=== PATIENT | male | born 1970 | race Caucasian/White ===

== ENCOUNTER → 2018-03-30 15:08 | Outpatient (CLI) | payer BC, SELFPAY ==
--- NOTE | 2018-03-30 15:13 | CT_ITS ---
CT head/brain wo/w con HISTORY: Dizziness, headache following injury ITS.REASON: RIGHT ACUTE SEROUS OTILIS MEDIA, DIZZINESS ORDERING PHYSICIAN: Lola Sweeney PATIENT AGE: 47 years COMPARISON: None TECHNIQUE: Axial images obtained without and with 100 mL's of 300 contrast. Brain and bone windows reviewed. All CT scans at the facility use one or more dose reduction, viz: automated exposure control; ma/kV adjustment per patient size (including targeted exams where dose is matched to indication; i.e. head); or iterative reconstruction technique. FINDINGS: No midline shift, mass effect, intracranial hemorrhage, hydrocephalus, or extra-axial fluid collection is evident. No enhancing lesions are evident. No sinus air-fluid level or mastoid effusion. No obvious calvarial fracture. There is mild mucosal thickening of the ethmoid and left maxillary sinus. The calvarium has an unremarkable appearance. No mastoid effusion. No sinus air-fluid levels.. IMPRESSION: 1. No acute intracranial findings. 2. Minimal sinus disease
== END ==
PROVIDERS: Family Provider Emergency Medicine; PCP Family Medicine; Visit Provider Nurse Practitioner Family
DX: H65.01 Acute serous otitis media, right ear (principal); R42 Dizziness and giddiness
CPT/HCPCS: 70470; Q9967

== ENCOUNTER → 2019-04-29 12:07 | Outpatient (CLI) | payer BC, SELFPAY ==
--- NOTE | 2019-04-29 12:12 | XR_ITS ---
XR wrist LT min 3V CLINICAL INDICATION: ITS.REASON: LT WRIST INJURY ORDERING PHYSICIAN: Lola Sweeney APRN PATIENT AGE: 48 years Comparison: None FINDINGS: There is a subtle sclerotic area in the proximal scaphoid bone. The remainder of the bone density, joint space and alignment are normal. There is no acute fracture. Soft tissues are unremarkable. Impression: No acute process. Scaphoid sclerotic area could be a benign bone island or chronic stress reaction.
== END ==
PROVIDERS: PCP Nurse Practitioner Family; Visit Provider Nurse Practitioner Family
DX: S69.92XA Unspecified injury of left wrist, hand and finger(s), initial encounter (principal)
CPT/HCPCS: 73110

== ENCOUNTER → 2019-05-20 10:40 | Outpatient (CLI) | payer BC, SELFPAY ==
--- NOTE | 2019-05-20 10:46 | MR_ITS ---
PROCEDURE: MR WRIST LT WO CON CLINICAL INDICATION: LEFT WRIST PAIN, INJURY OF LEFT WRIST Left wrist pain, COMPARISON: No exams were available for comparison TECHNIQUE: Routine multiplanar multi echo sequences are performed without contrast FINDINGS: Amorphous signal intensity is noted within the capitate having a the appearance of a fracture on the axial images but not as convincing on the sagittal or coronal images with decreased T1 and some increased T2 signal. An old fracture is a possibility. Recommend CT of the wrist for better bony detail. There is also some soft transverse decreased T1 signal in the lunate showing slight increased T2 signal. There are 2 foci of decreased T1 and decreased T2 signal within the scaphoid which could be due to bone islands. The triangular fibrocartilage appears intact. No soft tissue mass or abnormal fluid collection. IMPRESSION: Signal alteration within the lunate and capitate of questionable etiology. Healing fractures are consideration. Subarticular cystic change of the capitate is also considered. Other more aggressive etiology is not completely excluded. Suggest CT scan of the for better bony detail. Suspect bone islands of the scaphoid Dictated by: Jerald Olivares MD 05/23/2019 12:10 Signed by: <Electronically signed by Jerald Olivares MD in [place]> 05/23/2019 12:10
== END ==
PROVIDERS: PCP Nurse Practitioner Family; Visit Provider Nurse Practitioner Family
DX: M25.532 Pain in left wrist (principal); S69.92XD Unspecified injury of left wrist, hand and finger(s), subsequent encounter
CPT/HCPCS: 73221

== ENCOUNTER → 2019-09-08 16:28 | Outpatient (CLI) | payer BC, SELFPAY ==
--- NOTE | 2019-09-08 | XR_ITS ---
PROCEDURE: XR CHEST 2V CLINICAL HISTORY: Chest pain and cough COMPARISON: CXR1 CHEST-PORTABLE from 05/23/2013 CXR CHEST(2 VIEWS-NOT PORTABLE) from 12/13/2014 FINDINGS: The cardiomediastinal silhouette and pulmonary vascularity are within normal limits. The lungs are clear without infiltrates, suspicious nodules, or pleural effusions. No acute bony abnormalities. IMPRESSION: No acute findings. Dictated by: Jerald Olivares MD 09/08/2019 17:13 Electronically signed by Jerald Olivares MD in [place] 09/08/2019 17:13
[2019-09-08 16:39] LABS: Basophils # 0.1 K/mm3 (0-0.2); Basophils % 0.8 % (0.1-2.0); Eosinophils # 0.2 K/mm3 (0.0-0.4); Eosinophils % 2.6 % (0.1-12.0); Hematocrit 43.1 % (42.0-52.0); Lymphocytes # 2.4 K/mm3 (0.7-4.5); Lymphocytes % 30.6 % (10-50); Mean Corpuscular HGB Conc 32.6 g/dL (31.8-35.4); Mean Corpuscular Hemoglobin 30.4 pg (27.0-31.2); Mean Corpuscular Volume 93.3 fl (80-94); Mean Platelet Volume 7.8 fl (7.4-10.4); Monocytes # 0.5 K/mm3 (0.1-1.0); Monocytes % 5.7 % (1.7-9.3); Neutrophils # 4.7 K/mm3 (1.8-7.8); Neutrophils % 60.2 % (37.0-80.0); Platelet Count 358 K/mm3 (142-424); Red Blood Count 4.62 M/mm3 (4.60-6.20); Red Cell Distribution Width 12.6 % (11.5-17.5); White Blood Count 7.8 K/mm3 (4.8-10.8)
[2019-09-08 16:55] LABS: Alanine Aminotransferase 20 U/L (12-78); Albumin Level 3.8 gm/dL (3.4-5.0); Albumin/Globulin Ratio 1.3 (1.1-1.8); Alkaline Phosphatase 66 U/L (46-116); Anion Gap 13.2 mEq/L (5-15); Aspartate Amino Transferase 14 U/L (15-37); Bilirubin,Total 0.2 mg/dL (0.2-1.0); Blood Urea Nitrogen 14 mg/dL (7-18); Calcium 8.7 mg/dL (8.5-10.1); Carbon Dioxide 29 mmol/L (21.0-32.0); Chloride 101 mmol/L (98-107); Creatinine,Serum 0.95 mg/dL (0.70-1.30); Estimated Glomerular Filt Rate 85 ml/min (>60); GFR (African American) 103 ML/MIN (>60); Glucose 89 mg/dL (74-106); Potassium 4.2 mmoL/L (3.5-5.1); Sodium 139 mmol/L (136-145); Total Protein,Serum 6.8 gm/dL (6.4-8.2); Troponin I < 0.02 ng/ml (0.00-0.06)
[2019-09-10 17:52] LABS: Myoglobin <21 ng/mL (28-72)
== END ==
PROVIDERS: Visit Provider Nurse Practitioner Family
DX: R07.9 Chest pain, unspecified (principal)
CPT/HCPCS: 36415; 71046; 80053; 83874; 84484; 85025

== ENCOUNTER → 2019-12-12 14:27 | Outpatient (CLI) | payer BC, SELFPAY ==
--- NOTE | 2019-12-12 14:32 | XR_ITS ---
PROCEDURE: XR CHEST 2V CLINICAL HISTORY: BRONCHITIS COMPARISON: CXR1 CHEST-PORTABLE from 05/23/2013 CXR CHEST(2 VIEWS-NOT PORTABLE) from 12/13/2014 XR CHEST 2V from 09/08/2019 FINDINGS: The cardiomediastinal silhouette and pulmonary vascularity are within normal limits. The lungs are clear without infiltrates, suspicious nodules, or pleural effusions. No acute bony abnormalities. IMPRESSION: No acute findings. Dictated by: Jerald Olivares MD 12/12/2019 15:51 Electronically signed by Jerald Olivares MD in [place] 12/12/2019 15:51
== END ==
PROVIDERS: PCP Nurse Practitioner; Visit Provider Nurse Practitioner
DX: J20.9 Acute bronchitis, unspecified (principal)
CPT/HCPCS: 71046

== ENCOUNTER → 2021-06-17 15:12 | Outpatient (CLI) | payer BC, SELFPAY ==
--- NOTE | 2021-06-17 15:20 | XR_ITS ---
PROCEDURE: XR CHEST PORTABLE CLINICAL HISTORY: COVID COMPARISON: CR CXR CHEST(2 VIEWS-NOT PORTABLE) from 12/13/2014 CR XR CHEST 2V from 09/08/2019 CR XR CHEST 2V from 12/12/2019 FINDINGS: The cardiomediastinal silhouette and pulmonary vascularity are within normal limits. The lungs are clear without infiltrates, suspicious nodules, or pleural effusions. No acute bony abnormalities. IMPRESSION: No acute findings. Dictated by: Jerald Olivares MD 06/17/2021 16:08 Jerald Olivares MD in [place] 06/17/2021 16:08
== END ==
LOC: RAD 15:16 → COVID.OUT 15:23
PROVIDERS: PCP Nurse Practitioner Family; Visit Provider Nurse Practitioner Family
DX: R06.02 Shortness of breath (principal); U07.1 COVID-19
CPT/HCPCS: 71045

== ENCOUNTER 2021-09-23 11:32 | Emergency (ER) | payer BC, SELFPAY ==
[2021-09-23 13:00] VITALS: BP 133/76; PULSE 85; RESP 18; TEMP 36.6; O2SAT 97; BMI 29.8
--- NOTE | 2021-09-23 13:23 | HMH.EDUTC ---
[facility] [place] Clinical Impression: Bronchitis Sinusitis Qualifiers: Sinusitis location: unspecified location Chronicity: unspecified Qualified Code(s): J32.9 - Chronic sinusitis, unspecified Disposition: Home, Self-Care Condition on Discharge: Good Instructions: Sinusitis, DI for Sinusitis Additional Instructions: ? Start antibiotic today. Be sure to complete entire prescription even if feeling better ? Monitor temp. Tylenol every 4 hours as needed and / or ibuprofen every 6 hours as needed ( As long as your primary care physician has told you that it ok to take both. For fever/aches/pains ER if no less than 101 despite Tylenol or Motrin ? Humidifier/vaporizer or hot steamy shower ? Inhaler every 4-6 hours as needed like we discussed. If unsure how to use it, ask pharmacist to demonstrate how. Should help open airways and improve cough, wheezing, and shortness of breath *Tessalon Perles will not cause drowsiness but use at bedtime to help stop cough so that you may get some rest. *Start steroid today. Helps with inflammation therefore, cough and wheezing. Follow directions on the package. Reviewed side effects. Patient reports taking them before. Follow up IMMEDIATELY for new or worsening of symptoms OR no noticeable improvement over the next 48-72 hours. 911 immediately for any life threatening symptoms such as chest pain or difficulty breathing Prescriptions: Benzonatate [Benzonatate 100mg cap] 100 mg PO Q8HP PRN #15 cap PRN Reason: Cough Transmission Status: Received by [facility] Cefdinir [Omnicef 300mg Capsule] 300 mg PO BID #20 cap Transmission Status: Received by [facility] predniSONE [Prednisone 20mg Tab] 20 mg PO BID 5 Days #10 tab Transmission Status: Received by [facility] Referrals: Lola Sweeney APRN [Primary Care Provider] - As needed Time of Disposition: 14:00 Medical Decision Making - Darian Inquiry Pt receiving controlled substance: No Darian was queried for this patient: No Vital Signs: 09/23/21 13:00 09/23/21 13:45 Temperature 97.9 F 97.9 F Temperature Source Oral Pulse Rate 85 Pulse Rate [Right Brachial] 85 Respiratory Rate 18 18 Blood Pressure 133/76 Blood Pressure [Right Arm] 133/76 Blood Pressure Mean [Right Arm] 95 Blood Pressure Source [Right Arm] Automatic Cuff Blood Pressure Position [Right Arm] Sitting 02 Sat by Pulse Oximetry 97 Oxygen Delivery Method Room Air Orders (Tests/Meds): ED MEDICATIONS Discontinued Medications Generic Name Dose Route Start Last Admin Trade Name Mago PRN Reason Stop Dose Admin Albuterol/Ipratropium 3 ml 09/23/21 13:58 09/23/21 14:00 Ipratropium/Albuterol 3 Ml Neb IH 09/23/21 13:59 3 ml ONCE ONE Administration Methylprednisolone Sodium Succinate 125 mg 09/23/21 13:34 09/23/21 13:36 Methylprednisolone Sod Succ 125mg Vial IM 09/23/21 13:35 125 mg ONCE ONE Administration Medical Decision Narrative: Patient states that he has taken Cefdinir in the past without complications or reactions [facility] [place]PI - General Stated complaint: cough, diarrhea, h/a, congestion Time Seen by Provider: 09/23/21 13:23 Mode of Arrival: Ambulatory Source of Information: Patient Limitations: No Limitations Description of Symptoms (Recalled from Triage Doc. by RN): PATIENT C/O COUGH AND HEADACHE SINCE THURSDAY HEENT Symptoms (Recalled from RN notes): Yes Resp Symptoms (Recalled from RN notes): Yes Skin Symptoms (Recalled from RN notes): No MS Symptoms (Recalled from RN notes): No Functional Status (Recalled from RN notes): WNL - History of Present Illness Provider Complaint: Patient states that he gets bronchitis around this time each year State that he has been having cough, sinus congestion and drainage State that he feels like it is trying to move into his lungs so he came in to get checked and see if he could get a shot - Related Data Home Medications Medication Instructions Re
[2021-09-23 13:45] VITALS: BP 133/76; PULSE 85; RESP 18; TEMP 36.6; O2SAT 97
== END 2021-09-23 14:15 | disposition home or self-care (01) ==
PROVIDERS: Emergency Provider Nurse Practitioner; PCP Nurse Practitioner Family
DX: J20.9 Acute bronchitis, unspecified (principal); J32.9 Chronic sinusitis, unspecified; F17.210 Nicotine dependence, cigarettes, uncomplicated; Z20.822 Contact with and (suspected) exposure to COVID-19
CPT/HCPCS: 96372; 99202; C9803; G0463; U0003; U0005

== ENCOUNTER 2021-09-25 14:41 | Emergency (ER) | payer BC, SELFPAY ==
--- NOTE | 2021-09-25 15:08 | XR_ITS ---
PROCEDURE INFORMATION: Exam: XR Chest Exam date and time: 09/25/2021 3:08 PM Age: 51 years old Clinical indication: Cough and shortness of breath; Smoker's cough; Patient HX: Cough, SOA, smoker, HX of covid; Additional info: SOB TECHNIQUE: Imaging protocol: XR of the chest. Views: 2 views. COMPARISON: CR XR CHEST PORTABLE 06/17/2021 3:47 PM FINDINGS: Lungs: Bilateral hyperinflation is present. No focal pneumonia or pneumothorax. Pleural spaces: There are no pleural effusions present. Heart/Mediastinum: Unremarkable. No cardiomegaly. Bones/joints: The thoracic spine demonstrates mild degenerative changes at multiple levels. IMPRESSION: 1. Bilateral hyperinflation is present. 2. No focal pneumonia or pneumothorax.
[2021-09-25 15:45] VITALS: BP 141/97; PULSE 75; RESP 24; TEMP 36.9; O2SAT 96; BMI 29.4
[2021-09-25 16:25] LABS: Adenovirus,PCR Not Detected (NotDetected); Bordetella Pertussis Not Detected (NotDetected); Chlamydophila Pneumoniae, PCR Not Detected (NotDetected); Coronavirus 19, PCR Not Detected (NotDetected); Coronavirus 229E Not Detected (NotDetected); Coronavirus NL63 Not Detected (NotDetected); Coronavirus OC43 Not Detected (NotDetected); Coronovirus HKU1,PCR Not Detected (NotDetected); Human Metapneumovirus Not Detected (NotDetected); Influenza A, PCR Not Detected (NotDetected); Influenza AH1, 2009 Not Detected (NotDetected); Influenza AH1, PCR Not Detected (NotDetected); Influenza AH3,PCR Not Detected (NotDetected); Influenza B, PCR Not Detected (NotDetected); Mycoplasma Pneumoniae, PCR Not Detected (NotDetected); Parainfluenza 1, PCR Not Detected (NotDetected); Parainfluenza 2, PCR Not Detected (NotDetected); Parainfluenza 3, PCR Not Detected (NotDetected); Respiratory Syncytial Virus Not Detected (NotDetected); Rhinovirus/Enterovirus Not Detected (NotDetected)
--- NOTE | 2021-09-25 16:29 | HMH.EDUTC ---
[facility] [place] Disposition Clinical Impression: Bronchitis, COPD exacerbation Disposition: Home, Self-Care Condition on Discharge: Good Instructions: DI for Chronic Obstructive Pulmonary Disease, Albuterol Oral Inhalation Additional Instructions: ? Continue antibiotic . Be sure to complete entire prescription even if feeling better ? Monitor temp. Tylenol every 4 hours as needed and / or ibuprofen every 6 hours as needed ( As long as your primary care physician has told you that it ok to take both. For fever/aches/pains ER if no less than 101 despite Tylenol or Motrin ? Humidifier/vaporizer or hot steamy shower ? Inhaler every 4-6 hours as needed like we discussed. If unsure how to use it, ask pharmacist to demonstrate how. Should help open airways and improve cough, wheezing, and shortness of breath *Promethazine DM cough syrup will cause drowsiness. Use only at night. No driving, operating machinery or caring for small children after taking it Continue taking steroid Helps with inflammation therefore, cough and wheezing. Follow directions on the package. Reviewed side effects. Patient reports taking them before. Call your Family Doctor and make appointment for follow up Follow up IMMEDIATELY for new or worsening of symptoms OR no noticeable improvement over the next 48-72 hours. 911 immediately for any life threatening symptoms such as chest pain or difficulty breathing Prescriptions: Albuterol Sulfate [Proventil-HFA 90mcg/puff Inh] 1 - 2 puffs IH Q4HP PRN #1 each PRN Reason: Shortness Of Breath Transmission Status: Received by [facility] Promethazine/Dextromethorphan [Promethazine-Dm Syrup] 5 ml PO Q6HP PRN #120 ml PRN Reason: Cough Transmission Status: Received by [facility] Fluticasone Propionate [Flonase 50mcg nasal spray 16gm] 1 spr NS DAILY #1 each Transmission Status: Pending to [facility] Azithromycin [Z-Que 250mg Tab] 250 mg PO DIRECTED #6 tab Transmission Status: Pending to [facility] Referrals: Lola Seweney APRN [Primary Care Provider] - As needed Time of Disposition: 17:50 Medical Decision Making - Darian Inquiry Pt receiving controlled substance: No Darian was queried for this patient: No Vital Signs: 09/25/21 15:45 09/25/21 17:38 Temperature 98.4 F 98.4 F Temperature Source Oral Pulse Rate 75 Pulse Rate [Right Brachial] 75 Respiratory Rate 24 24 Blood Pressure 141/97 H Blood Pressure [Right Arm] 141/97 H Blood Pressure Mean [Right Arm] 111 Blood Pressure Source [Right Arm] Automatic Cuff Blood Pressure Position [Right Arm] Sitting 02 Sat by Pulse Oximetry 96 Oxygen Delivery Method Room Air Orders (Tests/Meds): ED MEDICATIONS Discontinued Medications Generic Name Dose Route Start Last Admin Trade Name Mago PRN Reason Stop Dose Admin Albuterol Sulfate 2.5 mg 09/25/21 17:34 09/25/21 17:36 Albuterol 0.083% 2.5 Mg/3 Ml Neb IH 09/25/21 17:35 2.5 mg ONCE ONE Administration Albuterol/Ipratropium 3 ml 09/25/21 16:13 09/25/21 16:19 Ipratropium/Albuterol 3 Ml Neb IH 09/25/21 16:14 3 ml ONCE ONE Administration ORDERS Category Date Time Status Full Resp Panel w/COVID ([facility]) Routine Lab 09/25/21 15:56 Received - Radiology Data #1 Image(s): Chest Image Reviewed: Yes I reviewed the patient's radiology image w/the ED provider No acute Medical Decision Narrative: Patient states that he is feeling better since starting medication but cough has continued and seems not to be improving States that he has a coughing fit and wheezing is worse at night and his albuteral inhaler was outdated Patient states that breathing feels improved after neb Awaiting CXR reading Patient states that he is feeling better and wants to go home Discussed transfer to the ED for further testing and treatment and patient declined State that he will try new medications and follow up if no improvement SPO2 still 97%on room air Patient edu
[2021-09-25 17:38] VITALS: BP 141/97; PULSE 75; RESP 24; TEMP 36.9; O2SAT 96
[2021-09-25 19:22] LABS: Parainfluenza 4, PCR Detected (NotDetected)
== END 2021-09-25 17:58 | disposition home or self-care (01) ==
PROVIDERS: Emergency Provider Nurse Practitioner; PCP Nurse Practitioner Family
DX: J44.1 Chronic obstructive pulmonary disease with (acute) exacerbation (principal); J20.9 Acute bronchitis, unspecified; F17.210 Nicotine dependence, cigarettes, uncomplicated; Z88.0 Allergy status to penicillin
CPT/HCPCS: 71046; 87581; 87632; 87798; 99202; C9803; G0463; U0003; U0005

== ENCOUNTER 2022-03-22 13:22 | Emergency (ER) | payer BC, OTHER, SELFPAY ==
--- NOTE | 2022-03-22 13:49 | HMH.EDUTC ---
[facility] [place] Disposition Clinical Impression: Vertigo Otitis media Qualifiers: Otitis media type: suppurative Chronicity: acute Laterality: bilateral Recurrence: non-recurrent Spontaneous tympanic membrane rupture: without spontaneous rupture Qualified Code(s): H66.003 - Acute suppurative otitis media without spontaneous rupture of ear drum, bilateral Disposition: Home, Self-Care Condition on Discharge: Good Instructions: Middle Ear Infection, Benign Paroxysmal Positional Vertigo Additional Instructions: Take tylenol or ibuprofen for pain or fever. Take the medications as directed. Follow up with your regular doctor. GO TO THE ER FOR ANY WORSENING SYMPTOMS Prescriptions: methylPREDNISolone [Medrol] 4 mg PO DIRECTED 6 Days #21 packet Transmission Status: Received by [facility] Azithromycin [Z-Que 250mg Tab*] 250 mg PO UD DOSE PK #6 tab Transmission Status: Received by [facility] Referrals: Lloa Sweeney APRN [Primary Care Provider] - Time of Disposition: 14:19 Medical Decision Making - Medical Records Medical records reviewed: No: I reviewed the patient's medical records. - Darian Inquiry Pt receiving controlled substance: No Vital Signs: 03/22/22 13:51 03/22/22 14:22 Temperature 97.9 F 97.9 F Temperature Source Oral Pulse Rate 77 Pulse Rate [Left Radial] 77 Respiratory Rate 17 17 Blood Pressure 129/84 Blood Pressure [Right Arm] 129/84 Blood Pressure Mean [Right Arm] 99 02 Sat by Pulse Oximetry 96 Orders (Tests/Meds): ED MEDICATIONS Discontinued Medications Generic Name Dose Route Start Last Admin Trade Name Freq PRN Reason Stop Dose Admin Methylprednisolone Sodium Succinate 125 mg 03/22/22 14:23 03/22/22 14:25 Methylprednisolone Sod Succ 125mg Vial IM 03/22/22 14:24 125 mg ONCE ONE Administration [facility] [place] HPI - General Stated complaint: dizzy Time Seen by Provider: 03/22/22 13:49 - History of Present Illness Provider Complaint: He states that he has had intermittent dizziness and left ear pain for the past 2 days. - Related Data Home Medications Medication Instructions Recorded Confirmed Amlodipine Besylate/Benazepril 1 tab PO DAILY 09/23/21 09/23/21 [Amlodipine-Benazepril 5-10 mg] Aspirin [Aspirin 81mg chewable 81 mg PO DAILY 09/23/21 09/23/21 tab] Omeprazole [Omeprazole 40mg 40 mg PO DAILY 09/23/21 09/23/21 Capsule] Previous Rx's Medication Instructions Recorded Benzonatate [Benzonatate 100mg 100 mg PO Q8HP PRN #15 cap 09/23/21 cap] Cefdinir [Omnicef 300mg Capsule] 300 mg PO BID #20 cap 09/23/21 predniSONE [Prednisone 20mg 20 mg PO BID 5 Days #10 tab 09/23/21 Tab] Albuterol Sulfate [Proventil-HFA 1 - 2 puffs IH Q4HP PRN #1 each 09/25/21 90mcg/puff Inh] Azithromycin [Z-Que 250mg Tab] 250 mg PO DIRECTED #6 tab 09/25/21 Fluticasone Propionate [Flonase 1 spr NS DAILY #1 each 09/25/21 50mcg nasal spray 16gm] Promethazine/Dextromethorphan 5 ml PO Q6HP PRN #120 ml 09/25/21 [Promethazine-Dm Syrup] Azithromycin [Z-Que 250mg Tab*] 250 mg PO UD DOSE PK #6 tab 03/22/22 methylPREDNISolone [Medrol] 4 mg PO DIRECTED 6 Days #21 03/22/22 packet Allergies Allergy/AdvReac Type Severity Reaction Status Date / Time amoxicillin Allergy Verified 03/22/22 13:53 Penicillins Allergy Verified 03/22/22 13:53 [facility] History - Hepatitis A Screen Attestation statement:: This patient has been screened for Hepatitis A risk factors. I have reviewed the patient's past medical history: Yes - Social History Smoking Status: Current some day smoker Tobacco Type: cigarettes Alcohol Intake: never Occupational Status: other ROS Obtained: Yes All systems reviewed & no additional complaints - Constitutional Constitutional: Reports as per HPI - Eyes Eyes: Denies eye discharge - ENT Ears, Nose, Mouth, and Throat: Reports as per HPI - Cardiovascular Cardiovascular
[2022-03-22 13:51] VITALS: BP 129/84; PULSE 77; RESP 17; TEMP 36.6; O2SAT 96; BMI 30.1
[2022-03-22 14:22] VITALS: BP 129/84; PULSE 77; RESP 17; TEMP 36.6
== END 2022-03-22 14:28 | disposition home or self-care (01) ==
PROVIDERS: Emergency Provider Nurse Practitioner Family; PCP Nurse Practitioner Family
DX: H66.003 Acute suppurative otitis media without spontaneous rupture of ear drum, bilateral (principal); R42 Dizziness and giddiness; F17.210 Nicotine dependence, cigarettes, uncomplicated; Z79.51 Long term (current) use of inhaled steroids; Z79.52 Long term (current) use of systemic steroids; Z79.82 Long term (current) use of aspirin; Z79.899 Other long term (current) drug therapy; Z88.0 Allergy status to penicillin; Z88.1 Allergy status to other antibiotic agents; Z88.3 Allergy status to other anti-infective agents
CPT/HCPCS: 93005; 99213; G0463

== ENCOUNTER → 2022-04-21 16:45 | Outpatient (CLI) | payer BC, SELFPAY ==
--- NOTE | 2022-04-21 16:48 | MR_ITS ---
PROCEDURE INFORMATION: Exam: MR Head Without Contrast Exam date and time: 04/21/2022 4:49 PM Age: 51 years old Clinical indication: Pain; Headache; Additional info: Dizziness. Headache, dizziness, and fatigue for 2months. TECHNIQUE: Imaging protocol: Magnetic resonance imaging of the head without contrast. COMPARISON: HEADWW CT head/brain wo/w con 03/30/2018 3:25 PM FINDINGS: Brain: No acute infarct. No hemorrhage. No significant white matter disease. No edema. Cerebral ventricles: No ventriculomegaly. Bones/joints: Unremarkable. Paranasal sinuses: Normal as visualized. Mastoid air cells: Normal as visualized. Orbital cavities: Unremarkable. Soft tissues: Unremarkable. IMPRESSION: No acute findings.
== END ==
PROVIDERS: PCP Nurse Practitioner Family; Visit Provider Nurse Practitioner Family
DX: R42 Dizziness and giddiness (principal); R51.9 Headache, unspecified
CPT/HCPCS: 70551

== ENCOUNTER → 2022-08-25 10:30 | Outpatient (CLI) | payer BC, SELFPAY ==
[2022-08-25 19:20] LABS: Basophils # 0.2 K/mm3 (0-0.2); Eosinophils # 0.2 K/mm3 (0.0-0.4); Eosinophils % 2.3 % (0.1-12.0); Hematocrit 54.4 % (42.0-52.0); Hemoglobin 17.1 g/dL (14.1-18.0); Lymphocytes # 2.2 K/mm3 (0.7-4.5); Lymphocytes % 21.8 % (10-50); Mean Corpuscular HGB Conc 31.5 g/dL (31.8-35.4); Mean Corpuscular Hemoglobin 30.9 pg (27.0-31.2); Mean Platelet Volume 9.1 fl (7.4-10.4); Monocytes # 0.8 K/mm3 (0.1-1.0); Monocytes % 8.1 % (1.7-9.3); Neutrophils # 6.7 K/mm3 (1.8-7.8); Neutrophils % 65.8 % (37.0-80.0); Platelet Count 371 K/mm3 (142-424); Red Blood Count 5.55 M/mm3 (4.60-6.20); White Blood Count 10.2 K/mm3 (4.8-10.8)
[2022-08-25 19:38] LABS: Alanine Aminotransferase 25 U/L (12-78); Albumin Level 4.2 g/dl (3.5-5.0); Albumin/Globulin Ratio 1.8 (1.1-1.8); Alkaline Phosphatase 88 U/L (38-126); Anion Gap 14.4 mEq/L (5-15); Aspartate Amino Transferase 27 U/L (17-59); Bilirubin,Total 0.5 mg/dl (0.2-1.3); Blood Urea Nitrogen 12 mg/dl (9-20); Calcium 9.9 mg/dl (8.4-10.2); Carbon Dioxide 28 mmol/L (22.0-30.0); Chloride 99 mmol/L (98-107); Estimated Glomerular Filt Rate 79 ml/min (>60); GFR (African American) 96 ML/MIN (>60); Globulin 2.3 g/dL (1.3-3.2); Glucose 100 mg/dl (74-100); Potassium 4.4 mmoL/L (3.5-5.1); Sodium 137 mmol/L (136-145); Total Protein,Serum 6.5 g/dl (6.3-8.2)
[2022-08-25 20:06] LABS: Thyroid Stimulating Hormone 1.49 uIU/mL (0.465-4.68)
== END ==
PROVIDERS: PCP Family Medicine; Visit Provider Family Medicine
DX: Z00.00 Encounter for general adult medical examination without abnormal findings (principal); M54.50 Low back pain, unspecified; Z12.5 Encounter for screening for malignant neoplasm of prostate
CPT/HCPCS: 80053; 83036; 84443; 85025; 87086; G0103

== ENCOUNTER → 2022-12-29 13:45 | Outpatient (CLI) | payer BC, SELFPAY | PROVIDERS: PCP Family Medicine; Visit Provider Family Medicine | DX: N23 Unspecified renal colic (principal) | CPT/HCPCS: 87086 ==

== ENCOUNTER 2023-02-02 11:28 | Emergency (ER) | payer BC, SELFPAY ==
[2023-02-02 11:29] VITALS: BP 138/92; PULSE 82; RESP 16; TEMP 36.5; O2SAT 99; BMI 30.1
--- NOTE | 2023-02-02 11:47 | PC.NURSE ---
LIEN PRICE at
--- NOTE | 2023-02-02 11:48 | PC.NURSE ---
Dr. Owen at for pt eval
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
[2023-02-02 12:00] VITALS: BP 128/85; PULSE 72; O2SAT 98
--- NOTE | 2023-02-02 12:05 | XR_ITS ---
FINAL REPORT CLINICAL HISTORY: trauma FINDINGS: There is no acute fracture or dislocation. The joint spaces are intact. There is no soft tissue abnormality. IMPRESSION: No acute fracture. If clinical concern persists for acute fracture, consider CT. Reviewed, Interpreted and Dictated by Ephraim Bailon MD Transcribed by Aileen Anaya Authenticated and . [facility]
[2023-02-02 12:30] VITALS: BP 120/85; PULSE 75; O2SAT 96
--- NOTE | 2023-02-02 12:40 | PC.NURSE ---
Rounded on patient, pt is sitting up on side of the stretcher without complications. No other needs at this time. Call button within reach
--- NOTE | 2023-02-02 13:30 | PC.NURSE ---
DR MEZA AT BEDSIDE TO UPDATE PT AND
[2023-02-02 13:54] VITALS: BP 133/78; PULSE 74; RESP 18; TEMP 36.5; O2SAT 97
== END 2023-02-02 13:55 | disposition home or self-care (01) ==
PROVIDERS: Emergency Provider Emergency Medicine; PCP Nurse Practitioner Family
DX: S06.0X0A Concussion without loss of consciousness, initial encounter (principal); F17.210 Nicotine dependence, cigarettes, uncomplicated; W22.8XXA Striking against or struck by other objects, initial encounter
CPT/HCPCS: 70110; 70450; 99283; 99284

== ENCOUNTER → 2023-04-01 14:55 | Outpatient (CLI) | payer BC, SELFPAY ==
[2023-04-01 18:12] LABS: Basophils % 0.8 % (0.1-2.0); Eosinophils # 0.2 K/mm3 (0.0-0.4); Eosinophils % 3.9 % (0.1-12.0); Hematocrit 49.7 % (42.0-52.0); Lymphocytes # 1.8 K/mm3 (0.7-4.5); Lymphocytes % 29.7 % (10-50); Mean Corpuscular HGB Conc 32.2 g/dL (31.8-35.4); Mean Corpuscular Hemoglobin 30.7 pg (27.0-31.2); Mean Corpuscular Volume 95.3 fl (80-94); Mean Platelet Volume 9.3 fl (7.4-10.4); Monocytes # 0.4 K/mm3 (0.1-1.0); Monocytes % 6.9 % (1.7-9.3); Neutrophils # 3.5 K/mm3 (1.8-7.8); Neutrophils % 58.8 % (37.0-80.0); Platelet Count 256 K/mm3 (142-424); Red Blood Count 5.22 M/mm3 (4.60-6.20); Red Cell Distribution Width 12.8 % (11.5-17.5); White Blood Count 5.9 K/mm3 (4.8-10.8)
[2023-04-01 18:21] LABS: Alanine Aminotransferase 30 U/L (12-78); Albumin Level 4.3 g/dl (3.5-5.0); Alkaline Phosphatase 69 U/L (38-126); Anion Gap 15.4 mEq/L (5-15); Aspartate Amino Transferase 31 U/L (17-59); Bilirubin,Total 0.4 mg/dl (0.2-1.3); Blood Urea Nitrogen 15 mg/dl (9-20); Calcium 9.1 mg/dl (8.4-10.2); Carbon Dioxide 23 mmol/L (22.0-30.0); Chloride 104 mmol/L (98-107); Chol/HDL Ratio 6.5 (1-3.5); Cholesterol 208 mg/dl (140-200); Estimated Glomerular Filt Rate 89 ml/min (>60); GFR (African American) 108 ML/MIN (>60); Globulin 2.1 g/dL (1.3-3.2); Glucose 119 mg/dl (74-100); HDL Cholesterol 32 mg/dl (40-60); Potassium 4.4 mmoL/L (3.5-5.1); Sodium 138 mmol/L (136-145); Total Protein,Serum 6.4 g/dl (6.3-8.2); Triglycerides 328 mg/dl (30-150); VLDL Cholesterol 66 mg/dL (0-40)
[2023-04-01 18:31] LABS: Direct LDL Cholesterol 130.48 mg/dL (100-129)
[2023-04-01 18:51] LABS: Thyroid Stimulating Hormone 0.86 uIU/mL (0.465-4.68)
[2023-04-08 15:06] LABS: Lyme B. burgdorferi PCR Blood Negative (Negative)
[2023-04-09 10:23] LABS: F026-IgE Pork < 0.10 kU/L (Class 0); F027-IgE Beef < 0.10 kU/L (Class 0); F088-IgE Lamb < 0.10 kU/L (Class 0); Immunoglobulin E, Total 24 IU/mL (6-495); O215-IgE Alpha-Gal 0.35 kU/L (Class I)
== END ==
PROVIDERS: PCP Family Medicine; Visit Provider Family Medicine
DX: R53.83 Other fatigue (principal); R42 Dizziness and giddiness; R51.9 Headache, unspecified; W57.XXXA Bitten or stung by nonvenomous insect and other nonvenomous arthropods, initial encounter
CPT/HCPCS: 80053; 80061; 84443; 85025; 87476

== ENCOUNTER → 2023-06-01 06:11 | Outpatient (CLI) | payer BC, SELFPAY ==
--- NOTE | 2023-06-01 06:32 | CT_ITS ---
FINAL REPORT TECHNIQUE: Axial images through the abdomen and pelvis were performed without contrast.This study was performed with techniques to keep radiation doses as low as reasonably achievable, (ALARA). Individualized dose reduction techniques using automated exposure control or adjustment of mA and/or kV according to the patient's size were employed. CLINICAL HISTORY: LLQ pain, LUQ mass FINDINGS: ABDOMEN: The lung bases are clear. The heart size is normal. Limited images of the liver are unremarkable. Patient is status postcholecystectomy. There are scattered calcified granulomas throughout the spleen. Spleen is otherwise unremarkable. No adrenal mass is identified. The aorta is normal in caliber. There is a retroaortic left renal vein noted. There is no significant free fluid or adenopathy. There is no nephrolithiasis. There is no hydronephrosis. PELVIS: The appendix is normal. The urinary bladder is unremarkable. There is no significant free fluid or adenopathy. Advanced degenerative disc disease is seen at L4-5 and L5-S1. IMPRESSION: No acute process. Reviewed, Interpreted and Dictated by Ephraim Bailon MD Transcribed by Michaela Walters Authenticated and . [facility]
== END ==
PROVIDERS: PCP Physician Assistant; Visit Provider Physician Assistant
DX: R10.32 Left lower quadrant pain (principal); R19.02 Left upper quadrant abdominal swelling, mass and lump
CPT/HCPCS: 74176

== ENCOUNTER → 2023-06-02 07:19 | Outpatient (CLI) | payer BC, SELFPAY ==
--- NOTE | 2023-06-02 07:28 | XR_ITS ---
FINAL REPORT CLINICAL HISTORY: . back and neck pain FINDINGS: Cervical spine AP and lateral views were obtained. Vertebrae are normal height. Alignment is within normal limits. Disc heights are preserved. There are mild anterior osteophytes at C3-C4. IMPRESSION: No acute process. Thoracic spine AP and lateral views were obtained. Vertebrae are normal height. Alignment is within normal limits. Disc heights are preserved. IMPRESSION: No acute process. Lumbar spine AP and lateral views were obtained. Vertebrae are normal height. Alignment is within normal limits. There is moderate disc space narrowing at L4-L5 and L5-S1. There is mild anterior osteophyte formation at L4-L5. IMPRESSION: Lower lumbar degenerative disc disease. Reviewed, Interpreted and Dictated by Ephraim Bailon MD Transcribed by Rex Hawk Authenticated and [facility]
--- NOTE | 2023-06-02 07:33 | XR_ITS ---
FINAL REPORT CLINICAL HISTORY: ABD PAIN x 1 year FINDINGS: A single view of the abdomen was obtained. There is a nonobstructive bowel gas pattern. There are no abnormally dilated loops of small bowel. There is a moderate amount of retained stool. There are multiple surgical clips throughout the upper abdomen. IMPRESSION: Moderate amount of retained stool. Reviewed, Interpreted and Dictated by Ephraim Bailon MD Transcribed by Rex Hawk Authenticated and [facility]
[2023-06-02 07:58] LABS: Microscopic, Urine URINE MICROSCOPIC (MICROSCOPIC)
[2023-06-02 08:11] LABS: Basophils # 0.1 K/mm3 (0-0.2); Basophils % 0.9 % (0.1-2.0); Eosinophils # 0.2 K/mm3 (0.0-0.4); Hematocrit 54.6 % (42.0-52.0); Hemoglobin 17.5 g/dL (14.1-18.0); Lymphocytes # 1.7 K/mm3 (0.7-4.5); Lymphocytes % 24.3 % (10-50); Mean Corpuscular HGB Conc 32.1 g/dL (31.8-35.4); Mean Corpuscular Volume 96.4 fl (80-94); Mean Platelet Volume 8.1 fl (7.4-10.4); Monocytes # 0.5 K/mm3 (0.1-1.0); Monocytes % 6.4 % (1.7-9.3); Neutrophils # 4.6 K/mm3 (1.8-7.8); Neutrophils % 65.4 % (37.0-80.0); Platelet Count 245 K/mm3 (142-424); Red Blood Count 5.66 M/mm3 (4.60-6.20); Red Cell Distribution Width 12.8 % (11.5-17.5)
[2023-06-02 08:34] LABS: Appearance,Urine CLEAR (Clear); Blood, Urine Negative (Negative); Color,Urine YELLOW (Yellow); Glucose,Urine (UA) Negative (Negative); Ketones,Urine Negative (Negative); Leukocyte Esterase,Urine Negative (Negative); Nitrate,Urine Negative (Negative); Protein,Urine Negative (Negative); Urobilinogen,Urine 0.2 EU/dl (0.2)
[2023-06-02 08:41] LABS: Bilirubin,Urine 1+ (Negative)
[2023-06-02 08:47] LABS: Bacteria,Urine Trace /lpf; Squamous Epithelial Cell,Urine Occasional #/hpf (0-5); WBC,Urine Occasional #/hpf (0-3)
[2023-06-02 09:53] LABS: Alanine Aminotransferase 22 U/L (12-78); Albumin Level 4.1 g/dl (3.5-5.0); Albumin/Globulin Ratio 1.6 (1.1-1.8); Alkaline Phosphatase 73 U/L (38-126); Amylase 41 U/L (30-110); Anion Gap 14.5 mEq/L (5-15); Aspartate Amino Transferase 24 U/L (17-59); Bilirubin,Total 0.5 mg/dl (0.2-1.3); Blood Urea Nitrogen 17 mg/dl (9-20); Calcium 9.4 mg/dl (8.4-10.2); Carbon Dioxide 25 mmol/L (22.0-30.0); Chloride 103 mmol/L (98-107); Estimated Glomerular Filt Rate 89 ml/min (>60); GFR (African American) 108 ML/MIN (>60); Globulin 2.5 g/dL (1.3-3.2); Glucose 115 mg/dl (74-100); Lipase 56 U/L (23-300); Potassium 4.5 mmoL/L (3.5-5.1); Sodium 138 mmol/L (136-145); Total Protein,Serum 6.6 g/dl (6.3-8.2)
== END ==
LOC: RAD 07:21
PROVIDERS: PCP Physician Assistant; Visit Provider Urology
DX: R31.1 Benign essential microscopic hematuria (principal); M54.50 Low back pain, unspecified
CPT/HCPCS: 36415; 72084; 74018; 80053; 81001; 82150; 83690; 85025

== ENCOUNTER → 2023-07-27 09:40 | Outpatient (CLI) | payer BC, SELFPAY ==
--- NOTE | 2023-07-27 09:46 | MR_ITS ---
FINAL REPORT CLINICAL HISTORY: BACK PAIN. BILATERAL GROIN PAIN COMPARISON: None FINDINGS: Multiplanar MR imaging of the lumbar spine was performed without contrast. On the sagittal T2-weighted images, there are degenerative changes in the discs at the L4-5 and L5-S1 levels. The vertebral alignment is normal. There is no evidence of fracture. No bony mass is identified. The conus has an unremarkable appearance. No significant canal stenosis is identified. T12-L1: No significant central canal stenosis or neural foraminal narrowing. L1-2: An annular bulge is present with osteophytes. No significant central canal stenosis or neuroforaminal narrowing. L2-3: No significant central canal stenosis or neuroforaminal narrowing. L3-4: No significant central canal stenosis or neuroforaminal narrowing. L4-5: An annular bulge is present with a right paracentral annular tear and a small central protrusion. There is mild bilateral neural foraminal narrowing. L5-S1: An annular bulge is present with mild bilateral neural foraminal narrowing. IMPRESSION: Mild degenerative change, most prominent at the L4-5 level. Reviewed, Interpreted and Dictated by Avery Wilson III, MD Transcribed by Su Neff Authenticated and . [facility]
--- NOTE | 2023-07-27 10:02 | XR_ITS ---
FINAL REPORT CLINICAL HISTORY: RULE OUT METALLIC FOREIGN BODY FOR MRI. PRIOR HX METAL IN LEFT EYE FINDINGS: ORBITS Look up and look down views were obtained. No fracture is identified. The sinuses are clear. No foreign body is identified. IMPRESSION: No acute process. No foreign body identified. Reviewed, Interpreted and Dictated by Avery Wilson III, MD Transcribed by Michaela Walters Authenticated and [facility]
--- NOTE | 2023-07-27 11:10 | CT_ITS ---
FINAL REPORT TECHNIQUE: Axial CT images of the abdomen and pelvis were obtained before and after the administration of IV contrast. Oral contrast was administered.This study was performed with techniques to keep radiation doses as low as reasonably achievable (ALARA). Individualized dose reduction techniques using automated exposure control or adjustment of mA and/or kV according to the patient''s size were employed. CLINICAL HISTORY: ABDOMINAL PAIN COMPARISON: 06/01/2023 FINDINGS: Abdomen: There is a 6 mm nodule in the lateral lung base, stable since the prior chest CT of May. There are multiple other smaller right base nodules present. The heart is normal in size. There is wall thickening in the stomach, a finding of uncertain significance, and would suggest correlation with upper endoscopy. There is a focal contrast-enhancing area in the posterior right hepatic lobe, that may represent a area of transient hepatic attenuation difference versus hypervascular mass. The gallbladder has been surgically resected. Surgical clips are present in the left upper quadrant of the abdomen as well. The spleen is unremarkable. No adrenal masses present. The pancreas has an unremarkable appearance. The kidneys enhance normally. The aorta is normal in caliber. There is no free fluid or adenopathy. No mass or abnormal fluid collection is seen. Pelvis: The appendix is normal. Moderate vascular calcifications are present. Sigmoid diverticula are present without evidence of acute inflammatory change. There are bilateral inguinal hernias present containing fat. No inflammatory process is seen. There is no evidence of mass or adenopathy. There is no evidence of bowel obstruction. IMPRESSION: 6 mm nodule lateral left lung base, stable with multiple other smaller right base nodules noted. Additional follow-up in 3 to 6 months with a repeat chest CT is suggested. Questionable wall thickening in the stomach, would suggest correlation with upper endoscopy as indicated. Focal contrast-enhancement in the posterior right lobe of the liver, that may represent transient hepatic attenuation difference versus hypervascular mass. Would suggest follow-up liver mass protocol CT. Reviewed, Interpreted and Dictated by Avery Wilson III, MD Transcribed by Su Neff Authenticated and [facility]
== END ==
LOC: RAD 09:40
PROVIDERS: PCP Physician Assistant; Visit Provider Urology
DX: R10.9 Unspecified abdominal pain (principal); M54.50 Low back pain, unspecified; H05.53 Retained (old) foreign body following penetrating wound of bilateral orbits
CPT/HCPCS: 70200; 72148; 74177; 76376; Q9967

== ENCOUNTER 2023-11-30 09:27 | Outpatient (CLI) | payer BC, SELFPAY ==
--- NOTE | 2023-11-30 09:30 | XR_ITS ---
FINAL REPORT CLINICAL HISTORY: shortness of breath COMPARISON: 09/25/2021 FINDINGS: PA and lateral views of the chest were obtained. The cardiac and mediastinal silhouettes are within normal limits. The lungs are clear. There is no pleural effusion or pneumothorax. No acute osseous abnormality is identified. IMPRESSION: No radiographic evidence of acute cardiac or pulmonary disease. Reviewed, Interpreted and Dictated by Hannah Lindo MD Transcribed by Tasha Araiza Authenticated and [facility]
== END 2023-11-30 23:59 ==
LOC: RAD 09:28
PROVIDERS: PCP Physician Assistant; Visit Provider Family Medicine
DX: R06.02 Shortness of breath (principal)
CPT/HCPCS: 71046

== ENCOUNTER 2024-05-26 11:10 | Emergency (ER) | payer BC, SELFPAY ==
[2024-05-26] VITALS (12 sets, daily range): BP systolic 112–157; BP diastolic 67–98; PULSE 61–90; RESP 13–18; TEMP 36.6–36.8; O2SAT 94–100; BMI 30.1
--- NOTE | 2024-05-26 11:10 | ED_ITS ---
Discharge Plan Disposition Patient Disposition: Home, Self-Care Condition: Good Prescriptions Prescriptions: New doxycycline hyclate 100 mg capsule 100 mg PO BID 5 Days Qty: 10 0RF prednisone 50 mg tablet 50 mg PO DAILY 5 Days Qty: 5 0RF No Action albuterol sulfate 2.5 mg /3 mL (0.083 %) solution for nebulization 2.5 mg inhalation Patient Comments: INHALE CONTENTS OF 1 VIAL BY NEBULIZATION 4 TIMES DAILY NEEDED FOR WHEEZING Trelegy Ellipta 200-62.5-25 mcg blister with device 1 inh inhalation DAILY Qty: 60 0RF azelastine 137 mcg (0.1 %) aerosol,spray 1 spray intranasal BID Qty: 30 3RF Rx Instructions: administer into each nostril epinephrine 0.3 mg/0.3 mL auto-injector 0.3 ml SQ Q5-15M PRN (Reason: anaphylaxis) Qty: 2 3RF Rx Instructions: do not exceed 2 doses per episode hydroxyzine HCl 25 mg tablet See Rx Instructions .ROUTE .COMPLEX Qty: 90 0RF Dose Instruction: TAKE 1 TABLET BY MOUTH THREE TIMES A DAY NEEDED FOR ANXIETY MAY CAUSE DROWSINESS Rx Instructions: TAKE 1 TABLET BY MOUTH THREE TIMES A DAY NEEDED FOR ANXIETY MAY CAUSE DROWSINESS amlodipine-benazepril 5-10 mg capsule See Rx Instructions .ROUTE .COMPLEX Qty: 90 0RF Dose Instruction: TAKE 1 CAPSULE BY MOUTH ONCE DAILY Rx Instructions: TAKE 1 CAPSULE BY MOUTH ONCE DAILY promethazine 25 mg tablet 25 mg PO Q6H PRN (Reason: nausea and vomiting) Qty: 30 0RF nghjtjcpgevkzga-mddhyqidn-WN [Bromfed DM] 2-30-10 mg/5 mL syrup 10 ml PO Q6H Qty: 118 0RF omeprazole 40 mg capsule,delayed release(DR/EC) See Rx Instructions .ROUTE .COMPLEX Qty: 90 0RF Dose Instruction: TAKE 1 CAPSULE BY MOUTH DAILY FOR GERD Rx Instructions: TAKE 1 CAPSULE BY MOUTH DAILY FOR GERD aspirin 81 MG tablet,chewable 81 mg PO DAILY Referrals Follow up/Referrals: Lola Sweeney APRN [Primary Care Provider] - See instructions Activity Restrictions/Add. Instructions Additional Instructions/Restrictions: As we discussed, I prescribed a course of steroids and a course of antibiotics. I recommend you use your home nebulizer every 6 hours as needed. Please follow- up with your cell support operator. Please return with any new or worsening symptoms. Clinical Impressions Clinical Impression: Chest pain Print Language Print Language: Kazakh Discharge ED Provider: Chris Ortiz Adult HPI General Chief complaint: Chest Pain Stated complaint: chest tigness Time Seen by Provider: 05/26/24 11:10 History of Present Illness HPI narrative: The patient presents with a chief complaint of chest tightness and shortness of breath, which has been ongoing for several days. He reports dizziness, which has been occurring on and off for a long time. The chest tightness has been constant since Thursday, and he denies any factors that make it better or worse. 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 He denies any recent changes in medications, travel, leg pain, or leg swelling and does not smoke. The patient has experienced similar symptoms in the past, including tingling across the jaw and extremities falling asleep, which he attributes to chemical pneumonitis. He uses inhalers daily, including Trelegy and Albuterol, and has been using the Albuterol more frequently at night for the past couple of weeks. He denies any history of blood clots in the lungs, fevers, chills, or recent exposure to sick individuals. He has not had valve surgery but is considering it due to the bicuspid valve, which was discovered in his mid-twenties. The last echocardiogram was performed in November, and he is scheduled to see his cell support operator again in November. He denies any sharp pain with deep breaths, leg pain, leg swelling, sore throat, or recent exposure to sick individuals. He has been taking ultras for suspected muscle spasms but reports no improvement in symptoms. He denies any triggers related to seasonal or weather changes, other than bronchitis. He has not been diagnosed with pulmonary hypertension or interstitial lung disease and is on maintenance medications, including Trelegy and Albuterol. He reports that the shortness of breath has been ongoing, while the chest tightness began four to five days ago. He experiences dizziness, but the cause is unknown. He reports his lungs are at 68% capacity. He mentions getting winded when chasing grandchildren around. 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 The dizziness is not associated with standing up, and he is unsure what triggers it. He states he has been using his rescue inhaler (Albuterol) more than normal, particularly at night for the last couple of weeks, but is unsure if it has helped. Please note that above description of symptoms, in this electronic medical record under categorization of recalled from ER triage doctor by RN are reflective of an initial nursing assessment, however, is not reflective of my full history and physical exam that was personally taken and clarified. Consequentially, this preceding description of symptoms, which may include the patient's categorized chief complaint in the EMR, do not reflect my personal clinical impression, and the ultimate description of history of present illness and patient stated complaints should be deferred to this section of the note. Unless stated otherwise or congruent with this section of the note, additional signs, symptoms, or incongruence should be interpreted as inaccurate with my clinical impression. Related Data Home Medications ?Medication ?Instructions ?Recorded ?Confirmed aspirin 81 mg chewable tablet 81 mg PO DAILY Heart disease 09/23/21 05/26/24 albuterol sulfate 2.5 mg/3 mL 2.5 mg inhalation 02/23/23 05/26/24 (0.083 %) solution for nebulization Previous Rx's ?Medication ?Instructions ?Recorded epinephrine 0.3 mg/0.3 mL 0.3 ml SQ Q5-15M PRN anaphylaxis 04/10/23 injection, auto-injector #2 ea azelastine 137 mcg (0.1 %) nasal 1 spray intranasal BID #30 mL 05/19/23 spray fluticasone fur. 200 mcg-umeclid 1 inh inhalation DAILY #60 ea 11/30/23 62.5 mcg-vilant 25 mcg inhalat.powder (Trelegy Ellipta) hydroxyzine HCl 25 mg tablet See Rx Instructions .Route 02/03/24 .COMPLEX #90 tabs amlodipine 5 mg-benazepril 10 mg See Rx Instructions .Route 02/24/24 capsule .COMPLEX #90 caps promethazine 25 mg tablet 25 mg PO Q6H PRN nausea and 03/30/24 vomiting #30 tabs rllpvmuoniyciko-qyospqpeazksrio-QS 10 ml PO Q6H #118 mL 03/31/24 2 mg-30 mg-10 mg/5 mL oral syrup (Bromfed DM) omeprazole 40 mg capsule,delayed See Rx Instructions .Route 04/25/24 release .COMPLEX #90 caps doxycycline hyclate 100 mg capsule 100 mg PO BID 5 days #10 caps 05/26/24 prednisone 50 mg tablet 50 mg PO DAILY 5 days #5 tabs 05/26/24 Allergies Allergy/AdvReac Type Severity Reaction Status Date / Time amoxicillin Allergy Verified 05/26/24 10:51 Penicillins Allergy Verified 05/26/24 10:51 PFSH [facility] Disclaimer: The information contained in this section may have been updated after the patient was seen, as this information can be updated by other users. Medical History (Updated 05/26/24 @ 15:02 by Chris Ortiz MD) URI (upper respiratory infection) Tobacco use Chronic bronchitis Otalgia, right ear Chemical pneumonitis Social History Smoking Status: Current every day smoker tobacco type: cigarettes alcohol intake: never current occupational status: other Travel in the last 8 weeks: None ROS Obtained: Yes other As per HPI Physical Exam General General appearance: alert and in no apparent distress Head Head exam: atraumatic and normocephalic Eye Eye exam: Present normal appearance Neck Neck exam: Present normal inspection Chest Chest inspection: Present normal inspection and symmetric chest wall rise Respiratory Respiratory exam: Present normal lung sounds bilaterally; Absent respiratory distress Cardiovascular Cardiovascular exam: Present regular rate and normal rhythm Abdominal Exam Abdominal exam: Present soft Neurological Exam Neurological exam: Present alert and oriented X3 Psychiatric Psychiatric exam: Present normal affect and normal mood Skin Skin exam: Present warm and dry Medical Decision Making Medical Records Medical records reviewed: Yes I reviewed the patient's medical records. Darian Inquiry Pt receiving controlled substance: No Vital Signs: 05/26/24 11:10 05/26/24 11:12 05/26/24 11:28 Temperature 98.2 F Temperature Source Oral Pulse Rate 62 Pulse Rate [Left Radial] 68 Respiratory Rate 13 Blood Pressure 150/82 H Blood Pressure [Right Arm] 150/82 H Blood Pressure Mean 119 Blood Pressure Mean [Right Arm] 104 Blood Pressure Source Blood Pressure Position 02 Sat by Pulse Oximetry 96 Oxygen Delivery Method Room Air 05/26/24 11:30 05/26/24 12:00 05/26/24 12:31 Temperature Temperature Source Pulse Rate 61 61 61 Pulse Rate [Left Radial] Respiratory Rate 17 14 Blood Pressure 119/78 125/77 112/67 Blood Pressure [Right Arm] Blood Pressure Mean Blood Pressure Mean [Right Arm] Blood Pressure Source Blood Pressure Position 02 Sat by Pulse Oximetry 98 100 94 L Oxygen Delivery Method 05/26/24 13:01 05/26/24 13:30 05/26/24 14:00 Temperature Temperature Source Pulse Rate 66 64 73 Pulse Rate [Left Radial] Respiratory Rate 16 15 15 Blood Pressure 134/81 130/89 132/82 Blood Pressure [Right Arm] Blood Pressure Mean Blood Pressure Mean [Right Arm] Blood Pressure Source Blood Pressure Position 02 Sat by Pulse Oximetry 97 97 Oxygen Delivery Method Room Air 05/26/24 14:30 05/26/24 15:02 05/26/24 15:11 Temperature 97.8 F Temperature Source Oral Pulse Rate 71 65 90 Pulse Rate [Left Radial] Respiratory Rate 18 15 16 Blood Pressure 117/72 155/97 H 157/98 H Blood Pressure [Right Arm] Blood Pressure Mean Blood Pressure Mean [Right Arm] Blood Pressure Source Automatic Cuff Blood Pressure Position Sitting 02 Sat by Pulse Oximetry 96 97 Oxygen Delivery Method Room Air Room Air Lab Data Lab Results 05/26/24 11:20: WBC 6.9, RBC 5.09, Hgb 14.9, Hct 48.2, MCV 94.7 H, MCH 29.3, M CHC 31.0 L, RDW 13.8, Plt Count 236, MPV 8.5, Neut % (Auto) 57.7, Lymph % (Auto) 29.5, Ross % (Auto) 7.7, Eos % (Auto) 4.1, Baso % (Auto) 1.0, Neut # (Auto) 4.0, Lymph # (Auto) 2.0, Ross # (Auto) 0.5, Eos # (Auto) 0.3, Baso # (Auto) 0.1, Sodium 138, Potassium 4.3, Chloride 111 H, Carbon Dioxide 25, Anion Gap 6.3, BUN 12, Creatinine 1.00, Estimated Creat Clear 118, Estimated GFR 79, Est GFR ( Amer) 95, Glucose 87, Calcium 8.7, Magnesium 1.9, Total Bilirubin 0.7, AST 33, ALT 28, Alkaline Phosphatase 56, Troponin I < 0.01, Total Protein 6.5, Albumin 4.0, Globulin 2.5, Albumin/Globulin Ratio 1.6 05/26/24 11:56: SARS-CoV-2 (PCR) Not detected, Influenza A Untype (PCR) Not detected, Influenza Type B (PCR) Not detected 05/26/24 13:58: Troponin I < 0.01 05/26/24 11:20 05/26/24 11:20 Orders (Tests/Meds): ED MEDICATIONS Discontinued Medications Generic Name Dose Route Start Last Admin Trade Name Freq PRN Reason Stop Dose Admin Albuterol/Ipratropium 3 ml 05/26/24 11:42 05/26/24 11:53 Ipratropium/Albuterol 3 Ml Neb IH 05/26/24 11:43 3 ml ONCE ONE Administration Methylprednisolone Sodium Succinate 40 mg 05/26/24 11:42 05/26/24 11:53 Methylprednisolone Sod Succ 40mg Vial IV 05/26/24 11:43 40 mg ONCE ONE Administration ORDERS Category Date Time Status XR chest 2V Stat Exams 05/26/24 11:43 Completed CBC w/Auto Diff [Complete Blood Count Auto Diff] Stat Lab 05/26/24 11:20 Completed CMP [Comprehensive Metabolic Panel] Stat Lab 05/26/24 11:20 Completed MAG [Magnesium] Stat Lab 05/26/24 11:20 Completed Rapid PCR Covid and Flu A/B Stat Lab 05/26/24 11:56 Completed Troponin I Q3H Lab 05/26/24 11:20 Completed Troponin I Q3H Lab 05/26/24 13:58 Completed HEART Score History (anamnesis): Moderately suspicious ECG: Non-specific disturbance Age: 45-65 years Risk factors: Atherosclerosis history Troponin: </= normal limit HEART Score: 5 Medical Decision Narrative: Patient with history and exam per above presenting for evaluation of chest pain, shortness of breath Diagnoses considered include ACS, COPD exacerbation, bronchitis, no clinical features to warrant further evaluation beyond history and physical exam for dissection, pulmonary embolism ED workup and treatment included: ED MEDICATIONS Discontinued Medications Generic Name Dose Route Start Last Admin Trade Name Freq PRN Reason Stop Dose Admin Albuterol/Ipratropium 3 ml 05/26/24 11:42 05/26/24 11:53 Ipratropium/Albuterol 3 Ml Neb IH 05/26/24 11:43 3 ml ONCE ONE Administration Methylprednisolone Sodium Succinate 40 mg 05/26/24 11:42 05/26/24 11:53 Methylprednisolone Sod Succ 40mg Vial IV 05/26/24 11:43 40 mg ONCE ONE Administration ORDERS Category Date Time Status XR chest 2V Stat Exams 05/26/24 11:43 Completed CBC w/Auto Diff [Complete Blood Count Auto Diff] Stat Lab 05/26/24 11:20 Completed CMP [Comprehensive Metabolic Panel] Stat Lab 05/26/24 11:20 Completed MAG [Magnesium] Stat Lab 05/26/24 11:20 Completed Rapid PCR Covid and Flu A/B Stat Lab 05/26/24 11:56 Completed Troponin I Q3H Lab 05/26/24 11:20 Completed Troponin I Q3H Lab 05/26/24 13:58 Completed Labs were independently interpreted by me, significant for no acute findings Imaging was independently visualized and interpreted by me, significant for no acute findings Please refer to radiology report for full details Patient reports slight improvement of symptoms upon repeat evaluation, given symptoms have been ongoing for several days and troponins undetectable x 2, low suspicion for ACS at this time. Patient has more frequent cough after administration of DuoNeb. I suspect he is experiencing transient demand ischemia, in the setting of his multiple comorbidities including COPD with ongoing smoking. I discussed my clinical impression with patient and answered all questions. At this time, the evidence for any other entities in the differential is insufficient to warrant any further testing or ED observation. This was explained to the patient. The patient was advised that persistent or worsening symptoms require further evaluation. Critical Care Critical Care Time Critical Care Time: No
--- NOTE | 2024-05-26 11:12 | ECG_ITS ---
APPROVED REPORT Exam: Resting ECG HR:63 bpm ECG Measurements Heart Rate 63 AXES DC 156 P 64 QRSd 113 QRS -10 QT 390 T 13 QTc 397 Conclusion SINUS RHYTHM S1-S2-S3 PATTERN, CONSISTENT WITH PULMONARY DISEASE, RVH, OR NORMAL VARIANT INCOMPLETE RIGHT BUNDLE BRANCH BLOCK [90+ ms QRS DURATION, TERMINAL R IN V1/V2, 40+ ms S IN I/aVL/V4/V5/V6] NONSPECIFIC T-WAVE ABNORMALITY BORDERLINE ECG Electronically signed by : KAT CRUZ, 05/27/2024 23:22:38
--- NOTE | 2024-05-26 11:43 | XR_ITS ---
FINAL REPORT TECHNIQUE: Chest PA & Lateral CLINICAL HISTORY: soa, cough, chest tightness COMPARISON: 09/25/2021 FINDINGS: 2 views of the chest were performed. The heart size is normal. The mediastinum is within normal limits. There is no acute cardiopulmonary process. There are no pleural effusions. There is no pneumothorax. The bony thorax appears intact. IMPRESSION: No acute cardiopulmonary process. Reviewed, Interpreted and Dictated by Ephraim Bailon MD Transcribed by Su Neff Authenticated and [facility]
[2024-05-26 11:51] LABS: Chloride 111 mmol/L (98-107)
[2024-05-26 11:52] LABS: Potassium 4.3 mmoL/L (3.5-5.1); Sodium 138 mmol/L (136-145)
[2024-05-26] MEDS: IPRATROPIUM/ALBUTEROL 3 ML NEB IH (11:53)
[2024-05-26] MEDS: METHYLPREDNISOLONE SOD SUCC 40MG VIAL 40 MG IV (11:53)
[2024-05-26 11:54] LABS: Alanine Aminotransferase 28 U/L (12-78); Alkaline Phosphatase 56 U/L (38-126); Anion Gap 6.3 mEq/L (5-15); Aspartate Amino Transferase 33 U/L (17-59); Bilirubin,Total 0.7 mg/dl (0.2-1.3); Blood Urea Nitrogen 12 mg/dl (9-20); Carbon Dioxide 25 mmol/L (22.0-30.0); Creatinine Clearance Estimated 118 mL/min (50-200); Estimated Glomerular Filt Rate 79 ml/min (>60); GFR (African American) 95 ML/MIN (>60); Total Protein,Serum 6.5 g/dl (6.3-8.2)
[2024-05-26 11:55] LABS: Albumin/Globulin Ratio 1.6 (1.1-1.8); Calcium 8.7 mg/dl (8.4-10.2); Globulin 2.5 g/dL (1.3-3.2); Glucose 87 mg/dl (74-100); Magnesium 1.9 mg/dl (1.6-2.3)
[2024-05-26 11:59] LABS: Coronavirus 19, PCR Not Detected (NotDetected); Influenza A, PCR Not Detected (NotDetected); Influenza B, PCR Not Detected (NotDetected)
[2024-05-26 12:08] LABS: Troponin I < 0.01 ng/ml (0.00-0.034)
[2024-05-26 12:14] LABS: Basophils # 0.1 K/mm3 (0-0.2); Eosinophils # 0.3 K/mm3 (0.0-0.4); Eosinophils % 4.1 % (0.1-12.0); Hematocrit 48.2 % (42.0-52.0); Hemoglobin 14.9 g/dL (14.1-18.0); Lymphocytes % 29.5 % (10-50); Mean Corpuscular Hemoglobin 29.3 pg (27.0-31.2); Mean Corpuscular Volume 94.7 fl (80-94); Mean Platelet Volume 8.5 fl (7.4-10.4); Monocytes # 0.5 K/mm3 (0.1-1.0); Monocytes % 7.7 % (1.7-9.3); Neutrophils % 57.7 % (37.0-80.0); Platelet Count 236 K/mm3 (142-424); Red Blood Count 5.09 M/mm3 (4.60-6.20); Red Cell Distribution Width 13.8 % (11.5-17.5); White Blood Count 6.9 K/mm3 (4.8-10.8)
[2024-05-26 14:30] LABS: Troponin I < 0.01 ng/ml (0.00-0.034)
== END 2024-05-26 15:11 | disposition home or self-care (01) ==
PROVIDERS: Emergency Provider Emergency Medicine; PCP Nurse Practitioner Family
DX: R07.9 Chest pain, unspecified (principal); R06.02 Shortness of breath; R42 Dizziness and giddiness; F17.210 Nicotine dependence, cigarettes, uncomplicated; J44.9 Chronic obstructive pulmonary disease, unspecified
CPT/HCPCS: 71046; 80053; 83735; 84484; 85025; 87636; 93005; 96374; 99284; J2919; J7620

== ENCOUNTER 2024-10-27 08:53 | Outpatient (CLI) | payer BC, SELFPAY ==
--- NOTE | 2024-10-27 08:54 | CT_ITS ---
FINAL REPORT TECHNIQUE: After the administration of oral and intravenous contrast, axial images were obtained through the abdomen and pelvis by computed tomography. The study was performed with techniques to keep radiation dose as low as reasonably achievable, (ALARA). Individual dose reduction techniques using automated exposure control or adjustment of mA and/or kV according to the patient's size were employed. CLINICAL HISTORY: Lower abdominal pain, abdominal wall bulge COMPARISON: 07/27/2023 FINDINGS: Abdomen: There is a small nodule in the periphery of the left lung base, best seen on image #23 of series 2, stable since the prior CT of 2022. The liver parenchyma is homogeneous, with a faint area of increased density in the right lobe posteriorly. This is less prominent than seen on the prior CT of 2022, favor transient hepatic attenuation difference. The gallbladder is present. The spleen, pancreas, adrenals and kidneys appear unremarkable. The wall thickening in the stomach is less evident than seen on the prior exam. Note is made of a retroaortic renal vein. The aorta is normal in caliber. There is no free fluid or adenopathy. Pelvis: The appendix is not identified. The urinary bladder is unremarkable. There is no free fluid or adenopathy. No evidence of any abdominal or pelvic bulge is identified. IMPRESSION: No acute intra-abdominal process. Reviewed, Interpreted and Dictated by Ephraim Bailon MD Transcribed by Su Neff Authenticated and [facility]
[2024-10-27 09:33] LABS: Blood Urea Nitrogen 12 mg/dl (9-20); Estimated Glomerular Filt Rate 89 ml/min (>60); GFR (African American) 107 ML/MIN (>60)
[2024-10-27 09:55] LABS: Albumin Level 4.2 g/dl (3.5-5.0); Chloride 103 mmol/L (98-107); Potassium 4.8 mmoL/L (3.5-5.1); Sodium 137 mmol/L (136-145)
[2024-10-27 09:57] LABS: Blood Urea Nitrogen 12 mg/dl (9-20); Estimated Glomerular Filt Rate 89 ml/min (>60); GFR (African American) 107 ML/MIN (>60)
[2024-10-27] MEDS: SODIUM CHLORIDE 0.9% 10ML SYR (RAD ONLY) 10 ML IV (09:57)
[2024-10-27] MEDS: IOPAMIDOL-370 (76%);100ML BOTTLE 75 ML IV (09:57)
[2024-10-27 09:58] LABS: Alanine Aminotransferase 33 U/L (12-78); Albumin/Globulin Ratio 1.9 (1.1-1.8); Alkaline Phosphatase 55 U/L (38-126); Anion Gap 9.8 mEq/L (5-15); Aspartate Amino Transferase 31 U/L (17-59); Bilirubin,Total 0.6 mg/dl (0.2-1.3); Calcium 9.5 mg/dl (8.4-10.2); Carbon Dioxide 29 mmol/L (22.0-30.0); Chol/HDL Ratio 5.9 (1-3.5); Cholesterol 196 mg/dl (140-200); Globulin 2.2 g/dL (1.3-3.2); Glucose 100 mg/dl (74-100); HDL Cholesterol 33 mg/dl (40-60); Total Protein,Serum 6.4 g/dl (6.3-8.2); Triglycerides 125 mg/dl (30-150); VLDL Cholesterol 25 mg/dL (0-40)
[2024-10-27 10:09] LABS: Direct LDL Cholesterol 135.33 mg/dL (100-129)
== END 2024-10-27 23:59 | disposition home or self-care (01) ==
LOC: RAD 08:54
PROVIDERS: Physician Assistant Medical; PCP Nurse Practitioner Family; Visit Provider Nurse Practitioner Family
DX: R19.00 Intra-abdominal and pelvic swelling, mass and lump, unspecified site (principal); R10.30 Lower abdominal pain, unspecified
CPT/HCPCS: 36415; 74177; 80053; 80061; 82565; 84520; Q9967

== ENCOUNTER 2024-11-14 10:53 | Outpatient (CLI) | payer BC, SELFPAY ==
--- NOTE | 2024-11-14 10:56 | XR_ITS ---
FINAL REPORT CLINICAL HISTORY: shortness of breath / coughing COMPARISON: 05/26/2024 FINDINGS: No acute pulmonary density is evident. There is no evidence of effusion or other pleural disease. The mediastinum has a normal appearance. The cardiac silhouette is unremarkable. IMPRESSION: Unremarkable chest exam. Reviewed, Interpreted and Dictated by Fuad Salazar MD Transcribed by Su Neff Authenticated and [facility]
[2024-11-14 12:33] LABS: Coronavirus 19, PCR Not Detected (NotDetected); Human Rhinovirus Not Detected (NotDetected); Influenza A, PCR Not Detected (NotDetected); Influenza B, PCR Not Detected (NotDetected); Respiratory Syncytial Virus Not Detected (NotDetected)
== END 2024-11-14 23:59 | disposition home or self-care (01) ==
LOC: RAD 10:54
PROVIDERS: PCP Nurse Practitioner Family; Visit Provider Nurse Practitioner Family
DX: J20.9 Acute bronchitis, unspecified (principal); R06.02 Shortness of breath; R05.9 Cough, unspecified; R06.2 Wheezing
CPT/HCPCS: 71046; 87631

== ENCOUNTER 2024-11-28 12:17 | Outpatient (CLI) | payer BC, SELFPAY ==
--- NOTE | 2024-11-28 12:27 | XR_ITS ---
FINAL REPORT CLINICAL HISTORY: left sided CP, SOA COMPARISON: 11/14/2024 FINDINGS: 2 views of the chest were obtained . The heart is normal in size. The mediastinum is within normal limits. The lungs are clear. There is no pneumothorax. Osseous structures are unremarkable. IMPRESSION: No acute cardiopulmonary process. Reviewed, Interpreted and Dictated by Fuad Salazar MD Transcribed by Michaela Walters Authenticated and [facility]
[2024-11-28 12:41] LABS: Basophils % 0.9 % (0.1-2.0); Eosinophils # 0.2 K/mm3 (0.0-0.4); Eosinophils % 4.3 % (0.1-12.0); Hematocrit 44.5 % (42.0-52.0); Hemoglobin 14.9 g/dL (14.1-18.0); Lymphocytes # 1.1 K/mm3 (0.7-4.5); Lymphocytes % 23.7 % (10-50); Mean Corpuscular HGB Conc 33.5 g/dL (31.8-35.4); Mean Corpuscular Hemoglobin 30.7 pg (27.0-31.2); Mean Corpuscular Volume 91.8 fl (80-94); Mean Platelet Volume 10.4 fl (7.4-10.4); Monocytes # 0.6 K/mm3 (0.1-1.0); Monocytes % 12.5 % (1.7-9.3); Neutrophils # 2.7 K/mm3 (1.8-7.8); Neutrophils % 58.4 % (37.0-80.0); Platelet Count 225 K/mm3 (142-424); Red Blood Count 4.85 M/mm3 (4.60-6.20); Red Cell Distribution Width 12.9 % (11.5-17.5); White Blood Count 4.6 K/mm3 (4.8-10.8)
[2024-11-28 13:24] LABS: Albumin Level 3.8 g/dl (3.5-5.0); Chloride 100 mmol/L (98-107); Sodium 135 mmol/L (136-145)
[2024-11-28 13:25] LABS: Potassium 4.3 mmoL/L (3.5-5.1)
[2024-11-28 13:27] LABS: Alanine Aminotransferase 105 U/L (12-78); Albumin/Globulin Ratio 1.7 (1.1-1.8); Alkaline Phosphatase 119 U/L (38-126); Anion Gap 12.3 mEq/L (5-15); Aspartate Amino Transferase 90 U/L (17-59); Bilirubin,Total 0.5 mg/dl (0.2-1.3); Blood Urea Nitrogen 20 mg/dl (9-20); Carbon Dioxide 27 mmol/L (22.0-30.0); Estimated Glomerular Filt Rate 49 ml/min (>60); GFR (African American) 59 ML/MIN (>60); Globulin 2.2 g/dL (1.3-3.2)
[2024-11-28 13:28] LABS: Glucose 94 mg/dl (74-100)
[2024-11-28 13:35] LABS: NT Pro Brain Natriuretic Pep. < 20.0 pg/mL (0-125)
[2024-11-28 13:53] LABS: Troponin I < 0.01 ng/ml (0.00-0.034)
== END 2024-11-28 23:59 | disposition home or self-care (01) ==
LOC: LAB 16:01
PROVIDERS: PCP Nurse Practitioner Family; Visit Provider Nurse Practitioner Family
DX: R07.9 Chest pain, unspecified (principal); R06.02 Shortness of breath
CPT/HCPCS: 36415; 71046; 80053; 83880; 84443; 84484; 85025

== ENCOUNTER 2024-12-19 16:23 | Outpatient (CLI) | payer BC, SELFPAY | END 2024-12-19 23:59 | disposition home or self-care (01) | LOC: LAB.DROPOF 16:24 | PROVIDERS: PCP Nurse Practitioner Family; Visit Provider Nurse Practitioner Family | DX: R05.1 Acute cough (principal); J42 Unspecified chronic bronchitis | CPT/HCPCS: 87070; 87205 ==

== ENCOUNTER 2025-04-24 13:49 | Outpatient (CLI) | payer BC, SELFPAY ==
--- OUTSIDE RECORDS SUMMARY | 2022-12-05 11:22 | XMS_ITS | Encounter Summary ---
[facility] Address [address] [place] [address] Care Team Providers Care Implementation Architect Name Role Phone Lola Sweeney APRN Primary Care Provider [phone] Encounter Details Date Type Department Care Team (Late st Contact Info) Description 12/05/2022 10:22 AM EST Hospital Encounter [facility] MEDICINE [address] [place] [address] Social History Tobacco Use Types [...] Description 07/19/2025 3:45 PM EDT Office Visit [facility] [address] [place] [address] Radhika He MD [address] [place] [address] 08/18/2025 2:00 PM EST Procedure visit [facility] [address] [facility] [facility] [place] [phone] 08/18/2025 2:30 PM EST Office Visit [facility] [address] [facility] [place] [address] Kaushik Galindo DO [address] [place] [address] documented as of this encounter Procedures Procedure [...] on filedocumented in this encounter Care Teams Implementation Architect Relationship Specialty Start Date End Date Lola Sweeney APRN PCP - General Internal Medicine 10/01/22 05/30/24 documented as of this encounter
--- OUTSIDE RECORDS SUMMARY | 2024-08-25 16:35 | XMS_ITS | Encounter Summary ---
Author Organization [facility] Address [address] [place] [address] Care Team Providers Care Gym Manager Name Role Phone Lola Sweeney APRN Primary Care Provider [phone] Encounter Details Date Type Department Care Team (Late st Contact Info) Description 08/25/2024 3:35 PM EST Hospital Encounter [facility] PULMONARY & CRITICAL CARE MEDICINE [address] [place] [address] Social History Tobacco Use Types [...] Description 07/19/2025 3:45 PM EDT Office Visit [facility] CARDIOLOGY [address] [place] [address] Radhika He MD [address] [place] [address] 08/18/2025 2:00 PM EST Procedure visit [facility] PULMONARY & CRITICAL CARE MEDICINE [address] [facility] [address] 08/18/2025 2:30 PM EST Office Visit [facility] PULMONARY & CRITICAL CARE MEDICINE [address] [facility] [place] [address] Kaushik Galindo DO [address] [place] [address] documented as of this encounter Procedures Procedure [...] MD 08/27/2024 11:25 AM EST Workstation ID: [id number] Narrative 08/27/2024 11:25 AM EST XR CHEST [...] MD 08/27/2024 11:25 AM EST Workstation ID: [id number] us Helen Montoya MD IMG DIAGNOSTIC IMAGING O RDERABLES Final Result documented in this encounter Visit Diagnoses Not on filedocumented in this encounter Care Teams Gym Manager Relationship Specialty Start Date End Date Lola Sweeney APRN [address] [address] PCP - General Internal Medicine 05/31/24 documented as of this encounter
--- OUTSIDE RECORDS SUMMARY | 2025-02-23 14:00 | XMS_ITS | Encounter Summary ---
Author Organization 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 (Primary Dx); Mucopurulent chronic bronchitis; Lung nodules Social History Tobacco Use Types Packs/Day Years Used Date Smoking Tobacco: Former Cigarettes Q uit: 11/04/2024 Cigars Started: 1990 Passive Smoke Exposure: Past Smokeless Tobacco: Never Tobacco Cessation:Counseling Given: Not Answered Alcohol Use Standard Drinks/Week Comments Not Currently [...] on file documented as of this encounter Last Filed Vital Signs Vital Sign Reading Time Taken Comments Blood Pressure 112/64 02/23/2025 1:59 PM EDT Pulse 67 02/23/2025 1:59 PM EDT Temperature 36.2 C (97.1 F) 02/23/2025 1:59 PM EDT Respiratory Rate - - Oxygen Saturation 96% 02/23/2025 1:5 9 PM EDT Room air at rest Inhaled Oxygen Concentration - - Weight 105 kg (232 lb) 02/23/2025 1:59 PM EDT Height 177.8 cm (5' 10 ) 02/23/2025 1:5 9 PM EDT Body Mass Index 33.29 02/23/2025 1:59 PM EDT documented in this encounter Progress Notes * Helen Montoya MD - 02/23/2025 2:00 PM EDT Guevara Christy is a 54 y.o. 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 Follow Up Problem list: Dyspnea on exertion Chronic chemical induced bronchiolitis obliterans Chronic bronchitis Tobacco use, 25 to 30 pack years, quit 10/2024 Bicuspid aortic valve GERD Hypertension Cardiac catheterization, 2010, normal coronary arteries Colonoscopy with polypectomy, 2017 Hand tendon surgery, left [place] fundoplication and cholecystectomy [place] tooth extraction Allergies, amoxicillin and penicillin GI intolerance History of Present Illness 54-year-old gentleman former smoker, with a history of chemical pneumonitis, small airways disease,bicuspid aortic valve without stenosis, moderate obstructive airways disease here for follow-up. I saw him for the and he was actively wheezing and coughing and had been sick for about 6 weeks. I placed him on a prednisone taper, slow over 3 weeks, asked him to use his nebulizer and try Airsupra as needed in between the nebulizer. He did quit smoking November 04, 2024. Wheezing better, but still very SOA on exertion, 52yds. Now using Trelegy daily, Airsupra as needed, usually 2x day. Denies sore throat. On bactrim for a bug bite. Review of Systems Constitutional: Positive for fatigue. Respiratory: Positive for shortness of breath. Negative for wheezing. Cardiovascular: Positive for palpitations. Negative for chest pain. Psychiatric/Behavioral: The patient is nervous/anxious. Current Outpatient Medications: Airsupra 90-80 MCG/ACT aerosol, , Disp: , Rfl: albuterol (PROVENTIL) (2.5 MG/3ML) 0.083% nebulizer solution, Take 2.5 mg by nebulization 4 (Four) Times a Day As Needed for Wheezing., Disp: 120 each, Rfl: 11 albuterol sulfate HFA 108 (90 Base) MCG/ACT inhaler, Inhale 2 puffs Every 4 (Four) Hours As Needed., Disp: , Rfl: amLODIPine-benazepril (LOTREL) 10-20 MG per capsule, Take 1 capsule by mouth Daily., Disp: 30 capsule, Rfl: 11 aspirin 325 MG tablet, Take 1 tablet by mouth Daily., Disp: , Rfl: azelastine (ASTELIN) 0.1 % nasal spray, , Disp: , Rfl: buPROPion XL (WELLBUTRIN XL) 150 MG 24 hr tablet, , Disp: , Rfl: doxycycline (VIBRAMYCIN) 100 MG capsule, Take 1 capsule by mouth 2 (Two) Times a Day., Disp: 20 capsule, Rfl: 0 EPINEPHrine (EPIPEN) 0.3 MG/0.3ML solution auto-injector injection, , Disp: , Rfl: Nccbvngyjps-Vqynqrtod-Lokhah (Trelegy Ellipta) 200-62.5-25 MCG/ACT aerosol powder , Inhale 1 puff Daily., Disp: 28 each, Rfl: 11 HYDROcodone Bit-Homatrop MBr (HYCODAN) 5-1.5 MG tablet tablet, Take 1 tablet by mouth Every 6 (Six)Hours As Needed (cough)., Disp: 28 tablet, Rfl: 0 HYDROcodone-acetaminophen (NORCO) 5-325 MG per tablet, , Disp: , Rfl: ipratropium-albuterol (DUO-NEB) 0.5-2.5 mg/3 ml nebulizer, , Disp: , Rfl: nystatin (MYCOSTATIN) 100,000 unit/mL suspension, Take 5 mL by mouth 4 (Four) Times a Day., Disp: 280 mL, Rfl: 0 omeprazole (priLOSEC) 40 MG capsule, Take 1 capsule by mouth Daily., Disp: , Rfl: Omeprazole Magnesium (PRILOSEC PO), , Disp: , Rfl: predniSONE (DELTASONE) 10 MG tablet, Take 4 tabs daily x 3 days, then take 3 tabs daily x 3 days, then take 2 tabs daily x 3 days, then take 1 tab daily x 3 days, Disp: 31 tablet, Rfl: 0 predniSONE (DELTASONE) 10 MG tablet, 4 po dailyx5, 3po dailyx5, 2 po dailyx7, 1 po dailyx7, Disp: 56 tablet, Rfl: 0 rosuvastatin (CRESTOR) 5 MG tablet, Take 1 tablet by mouth Daily., Disp: 30 tablet, Rfl: 4 sulfamethoxazole-trimethoprim (BACTRIM DS,SEPTRA DS) 800-160 MG per tablet, , Disp: , Rfl: tadalafil (CIALIS) 5 MG tablet, Take 1 tablet by mouth Daily As Needed for Erectile Dysfunction., Disp: , Rfl: Past Medical History: Diagnosis Date Acid reflux Allergy to alpha-gal Asthma Bicuspid aortic valve 09/10/2018 Chronic bronchitis COPD (chronic obstructive pulmonary disease) 2018 Chemical pneumatitis Essential hypertension 09/10/2018 Heart murmur Hypertension Mitral valve prolapse Pneumonia Past Surgical History: Procedure Laterality Date CARDIAC CATHETERIZATION COLONOSCOPY W/ POLYPECTOMY 2018 HAND TENDON SURGERY left hand HERNIA REPAIR Hiatal hernia repair and cholecystectomy WISDOM TOOTH EXTRACTION Social History Socioeconomic History Marital status: Number of children: 3 Tobacco Use Smoking status: Former Current packs/day: 0.00 Types: Cigarettes, Cigars Start date: 1990 Quit date: 11/04/2024 Years since quittin.3 Passive exposure: Past Smokeless tobacco: Never Vaping Use Vaping status: Never Used Substance and Sexual Activity Alcohol use: Not Currently Alcohol/week: 2.0 - 3.0 standard drinks of alcohol Types: 1 - 2 Cans of beer, 1 Shots of liquor per week Drug use: No Sexual activity: Yes Partners: Female Family History Problem Relation Age of Onset Hypertension Mother No Known Problems Sister No Known Problems Sister No Known Problems Sister Blood pressure 112/64, pulse 67, temperature 97.1 ??F (36.2 ??C), temperature source Temporal, height 177.8 cm (70 ), weight 105 kg (232 lb), SpO2 96%. Physical Exam HENT: Head: Normocephalic and atraumatic. Mouth/Throat: Pharynx: Oropharynx is clear. Cardiovascular: Rate and Rhythm: Normal rate and regular rhythm. Heart sounds: No murmur heard. Pulmonary: Breath sounds: No wheezing or rhonchi. Skin: Comments: Healing bug bite right lower flank without erythema or warmth Neurological: Mental Status: He is alert. June 03, 2024 echocardiogram, bicuspid aortic valve without stenosis, EF 60% PFTs: December 29, 2024, FVC 3.79 L, 76%, FEV1 2.57 L, 66%, ratio 68%, mid flows 44%, moderate obstruction August 25, 2024, FVC 3.96 L, 79%, FEV1 2.62 L, 67% ratio 66%, midexpiratory flows 49%, total lungcapacity 7.76 L, 114%, residual volume 3.76 L, 169%, diffusion capacity 28, 100%, moderate obstruction, air trapping with elevated RV, preserved diffusion. December 05, 2022, FVC 4.45 L, 88%, FEV1 2.65 L, 67% ratio 59%, mid expiratory flows 30%, no significant response to bronchodilators, total lung capacity 8.16 L, 120%, residual volume 3.71 L, 168%, diffusion capacity 29.48, 105% Radiology: November 28, 2024 chest x-ray, mild hyperinflation, no acute infiltrate or edema December 05, 2022 chest x-ray is well-inflated without acute infiltrate or effusion, heart is not enlarged, some scattered calcified granulomatous changes, no sign of fibrosis IMPRESSION: The chest, June 10, 2021 1. No PE or aortic dissection. 2. Negative for pneumonia. 3. Scattered benign small bilateral pulmonary nodules are stable from prior. No further follow-up is indicated at this time. Signer Name: Oleg Hassan MD Signed: 06/10/2021 11:05 PM Workstation Name: [facility] Lab: November 28, 2024, white count 4.6, hemoglobin 14.9, platelet count 225, 58% polys, 24% lymphs, 12%monos, 4% eosinophils, absolute eosinophil count 200 October 27, 2024, sodium 137, potassium 4.8, chloride 103, bicarbonate 29, BUN 12, creatinine 0.9, GFR 107, glucose 100, calcium 9.5, bilirubin 0.6, AST 31, ALT 33, total protein 6.4, albumin 4.2, alk phos 55 Diagnoses and all orders for this visit: 1. 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 Mucopurulent chronic bronchitis 3. Lung nodules Discussion: 54-year-old gentleman, former smoker, with chemical pneumonitis and small airways disease, bicuspidaortic valve without stenosis, moderate obstructive airways disease here for follow-up. He had a significant exacerbation that did not clear with the steroid burst and he needed a prolonged steroid taper. Currently he has no active bronchospasm. FEV1 is 66%. He has a fixed obstruction from his chemical bronchiolitis. Midexpiratory flows are 44%. He did successfully stop smoking November 04, 2024. With the multiple steroid rounds and smoking cessation he is gained weight. I calculated 16 pound increased compared to August 2024. He was unable to get Ohtuvayre. Trelegy is expensive but he has been getting samples. Wheezing has resolved and his lung exam is clear. Last echocardiogram revealed the bicuspid aortic valve but no stenosis. Previous CTAs have revealed bilateral pulmonary nodules that have been unchanged. However when he becomes 56 he will need to start low-dose screening CAT scans. Trelegy 200-60 2.5-25, 1 puff daily, coupon given Airsupra twice daily as needed wheezing DuoNeb 4 times daily as needed He is very active and works 3 jobs and needs a portable nebulizer that he can take with him Stop Bactrim Follow-up in 6 months with spirometry, sooner if symptoms recur Helen Montoya MD documented in this encounter Plan of Treatment Upcoming Encounters Date Type Department Care Team (Late st Contact Info) Description 07/19/2025 3:45 PM EDT Office Visit [facility]OLOG[facility] [address] [place] [address] Radhika He MD [address] [place] [address] 08/18/2025 2:00 PM EST Procedure visit [facility] MED[facility]INE [address] [place] [address] 08/18/2025 2:30 PM EST Office Visit [facility] [address] [place] [address] Kaushik Galindo, [address] [place] [address] documented as of this encounter Visit Diagnoses Diagnosis 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
--- OUTSIDE RECORDS SUMMARY | 2025-04-24 13:51 | XMS_ITS | Encounter Summary ---
Author Organization [facility] Address [address] [place] [address] Care Team Providers Care Build And Deployment Engineer Name Role Phone Lola Sweeney APRN Primary Care Provider [phone] Encounter Details Date Type Department Care Team (Latest Contact Info) Description 02/23/2025 Travel Social History Tobacco Use Types Packs/Day Years [...] Description 07/19/2025 3:45 PM EDT Office Visit [facility]IOLOG[facility] [address] [place] [address] Radhika He MD [address] [facility] [address] [place] [address] 08/18/2025 2:00 PM EST Procedure visit [facility] PUL[facility] & [facility]ITICAL CARE MEDICINE [address] [place] [address] 08/18/2025 2:30 PM EST Office Visit [facility] PUL[facility] & CRITICAL CARE MEDICINE [address] [place] [phone] Kasuhik Galindo DO [address] [place] [address] documented as of this encounter Visit Diagnoses Not on filedocumented in this encounter Care Teams Build And Deployment Engineer Relationship Specialty Start Date End Date Lola Sweeney APRN [address] [place] [id number] PCP - General Internal Medicine 05/31/24 documented as of this encounter
--- OUTSIDE RECORDS SUMMARY | 2025-04-24 13:51 | XMS_ITS | Encounter Summary ---
Author Organization [facility] Address [address] [place] [address] Care Team Providers Care Linux Network Engineer Name Role Phone Lola Sweeney APRN Primary Care Provider Reason for Visit * Reason Onset Date Comments Med Refill 02/23/2025 Encounter Details Date Type Department Care Team (Late st Contact Info) Description 02/23/2025 Refill [facility] PUL[facility] & [facility]ICAL [facility]ARE MEDICINE [address] [facility] [place] [address] Helen Montoya MD [address] [place] [address] Social History Tobacco Use Types Packs/Day Years [...] on file documented as of this encounter Miscellaneous Notes * Telephone Encounter - Christal Wilson MA - 02/23/2025 3:12 PM EDT Sample of Trelegy 200 given today. documented in this encounter Plan of Treatment Upcoming Encounters Date Type Department Care Team (Late st Contact Info) Description 07/19/2025 3:45 PM EDT Office Visit [facility] C[facility]IOLOGY [address] [facility] [address] [place] [address] Radhika He MD [address] [facility] [address] [place] [address] 08/18/2025 2:00 PM EST Procedure visit [facility] PULMON[facility] & CRITICAL CARE MEDICINE [address] [place] [address] 08/18/2025 2:30 PM EST Office Visit [facility] PULMON[facility] & CRITICAL CARE MEDICINE [address] [place] [address] Kauhsik Galindo, [address] [place] [address] documented as of this encounter Visit Diagnoses Not on filedocumented in this encounter Care Teams Linux Network Engineer Relationship Specialty Start Date End Date Lola Sweeney APRN [address] [place] [address] [address] PCP - General Internal Medicine 05/31/24 documented as of this encounter
--- OUTSIDE RECORDS SUMMARY | 2025-04-24 13:52 | XMS_ITS | Clinical Summary ---
Author Organization [facility] Address [address] [place] [address] Care Team Providers Care International Marketing Intern Name Role Phone Lola Sweeney TIM Primary Care Provider [phone] Allergies Active Allergy Reactions Criticality Noted Date Comments Amoxicillin Other (See Comments) High 09/10/2018 Patients doctor advised he cannot take this med Penicillins GI Intolerance Low 09/10/2018 Medications aspirin 325 MG tablet Take 1 tablet by mouth Daily. Active albuterol sulfate HFA 108 (90 Base) MCG/ACT inhaler Inhale 2 puffs Every 4 (Four) Hours As Needed. 9 Active albuterol (PROVENTIL) (2.5 MG/3ML) 0.083% nebulizer solution Take 2.5 mg by nebulization 4 (Four) Times a Day As Needed for Wheezing. 120 each 11 3 Active azelastine (ASTELIN) 0.1 % nasal spray 3 Active EPINEPHrine (EPIPEN) 0.3 MG/0.3ML solution auto-injector injection 3 Active HYDROcodone-maría taminophen (NORCO) 5-325 MG per tablet 3 Active Omeprazole Magnesium (PRILOSEC PO) Active tadalafil (CIALIS) 5 MG tablet Take 1 tablet by mouth Daily As Needed for Erectile Dysfunction. Active amLODIPine-justo zepril (LOTREL) 10-20 MG per capsule Take 1 capsule by mouth Daily. 30 capsule 11 4 Active buPROPion XL (WELLBUTRIN XL) 150 MG 24 hr tablet 4 Active rosuvastatin (CRESTOR) 5 MG tablet Take 1 tablet by mouth Daily. 30 tablet 4 5 Active Airsupra 90-80 MCG/ACT aerosol 5 Active ipratropium-alb uterol (DUO-NEB) 0.5-2.5 mg/3 ml nebulizer 5 Active omeprazole (priLOSEC) 40 MG capsule Take 1 capsule by mouth Daily. 5 Active predniSONE (DELTASONE) 10 MG tablet Take 4 tabs daily x 3 days, then take 3 tabs daily x 3 days, then take 2 tabs daily x 3 days, then take 1 tab daily x 3 days 31 tablet 5 Active doxycycline (VIBRAMYCIN) 100 MG capsule Take 1 capsule by mouth 2 (Two) Times a Day. 20 capsule 5 Active predniSONE (DELTASONE) 10 MG tablet 4 po dailyx5, 3po dailyx5, 2 po dailyx7, 1 po dailyx7 56 tablet 5 Active HYDROcodone Bit-Homatrop MBr (HYCODAN) 5-1.5 MG tablet tablet Take 1 tablet by mouth Every 6 (Six) Hours As Needed (cough). 28 tablet 5 Active nystatin (MYCOSTATIN) 100,000 unit/mL suspension Take 5 mL by mouth 4 (Four) Times a Day. 280 mL 5 Active sulfamethoxazol e-trimethoprim (BACTRIM DS,SEPTRA DS) 800-160 MG per tablet 5 Active Fluticasone-Ume clidin-Vilant (Trelegy Ellipta) 200-62.5-25 MCG/ACT inhaler Inhale 1 puff Daily. 1 each 5 Active Active Problems Problem Noted Date Diagnosed Date Lung nodules 06/01/2024 Chest tightness 06/01/2024 Dyslipidemia 07/17/2023 Shortness of breath 12/05/2022 Chronic obliterative bronchiolitis due to chemic al fumes 12/05/2022 Mucopurulent chronic bronchitis 12/05/2022 Bicuspid aortic valve 09/10/2018 Essential hypertension 09/10/2018 Resolved Problems Problem Noted Date Diagnosed Date Resolved Date Acute bronchospasm 12/29/2024 Encounters Date Type Department Care Team Description 02/23/2025 2:00 PM EDT Office Visit [facility] PUL[facility]ITICAL [facility]ARE MEDICINE [address] [place] [address] Helen Montoya MD 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 (Primary Dx); Mucopurulent chronic bronchitis; Lung nodules 02/23/2025 Refill [facility] MEDICINE [address] [place] [address] Helen Montoya MD 02/23/2025 Travel from Last 3 Months Immunizations Immunization Administration Dates Next Due Flu Vaccine Intradermal Quad 18-64YR 08/04/2024 Td (TDVAX) 12/06/1996 Tdap 03/28/2022 Family History Medical History Relation Name Comments Hypertension Mother Fiona kwok No Known Problems Sister 1 No Known Problems Sister 2 No Known Problems Sister 3 Relation Name Status Comments Father Other unknown Mother Fiona kwok Alive Sister 1 Alive Sister 2 Alive Sister 3 Alive Social History Tobacco Use Types Packs/Day Years [...] on file Sexual Orientation Not on file Last Filed Vital Signs Vital Sign Reading Time Taken Comments Blood Pressure 112/64 02/23/2025 1:59 PM EDT Pulse 67 02/23/2025 1:59 PM EDT Temperature 36.2 C (97.1 F) 02/23/2025 1:59 PM EDT Respiratory Rate 16 12/29/2024 3:03 PM EDT Oxygen Saturation 96% 02/23/2025 1:5 9 PM EDT Room air at rest Inhaled Oxygen Concentration - - Weight 105 kg (232 lb) 02/23/2025 1:59 PM EDT Height 177.8 cm (5' 10 ) 02/23/2025 1:5 9 PM EDT Body Mass Index 33.29 02/23/2025 1:59 PM EDT Plan of Treatment Upcoming Encounters Date Type Department Care Team (Late st Contact Info) Description 07/19/2025 3:45 PM EDT Office Visit [facility]IOLOG[facility] [address] [place] [address] Radhika He MD [address] [place] [address] 08/18/2025 2:00 PM EST Procedure visit [facility]ARE MEDICINE [address] [place] [address] 08/18/2025 2:30 PM EST Office Visit [facility] MEDICINE [address] [place] [address] Kaushik Galindo DO [address] [place] [address] Health Maintenance Due Date Last Done Comments COLOGUARD 2017 COLON CANCER SCREENING 5 YEA R SIGMOIDOSCOPY 2017 COLONOSCOPY 2017 [address] CANCER SCREENING 2017 CT COLONOGRAPHY 2017 FECAL OCCULT BLOOD TEST 2017 FIT Testing (1 year) 2017 ANNUAL PHYSICAL 09/01/2018 HEPATITIS C SCREENING 09/01/2018 ZOSTER VACCINE (1 of 2) 2022 COVID-19 Vaccine ( - 2023-2 5 season) 2024 Pneumococcal Vaccine 50+ (1 of 2 - PCV) 06/27/2025 Postponed from 09/05 (Patient Refused) INFLUENZA VACCINE 07/05/2025 08/04/2024 TDAP/TD VACCINES (3 - Td or Tdap) 03/28/2032 03/28/2022, 12/06/1996 Insurance [facility] PPO Care Teams International Marketing Intern Relationship Specialty Start Date End Date Lola Sweeney APRN [address] [place] [address] [place] [id number] PCP - General Internal Medicine 05/31/24
--- NOTE | 2025-04-24 13:54 | XR_ITS ---
FINAL REPORT TECHNIQUE: 5 views CLINICAL HISTORY: cervicalgia x2 weeks FINDINGS: There is no fracture present. There is no malalignment. There is minimal degenerative disc disease at C3-4. The neuroforamina is widely patent. IMPRESSION: Minimal disc disease. Reviewed, Interpreted and Dictated by Fuad Salazar MD Transcribed by Fiona Myles Authenticated and [facility]
== END 2025-04-24 23:59 | disposition home or self-care (01) ==
LOC: RAD 13:50
PROVIDERS: PCP Nurse Practitioner Family; Visit Provider Nurse Practitioner Family
DX: M50.31 Other cervical disc degeneration, high cervical region (principal)
CPT/HCPCS: 72050

== ENCOUNTER 2025-06-29 14:27 | Outpatient (CLI) | payer BC, SELFPAY ==
--- OUTSIDE RECORDS SUMMARY | 2022-12-05 11:22 | XMS_ITS | Encounter Summary ---
[facility] Address [address] [place] [address] Care Team Providers Care Cat Wagon Operator Name Role Phone Lola Sweeney APRN Primary Care Provider [phone] Encounter Details Date Type Department Care Team (Late st Contact Info) Description 12/05/2022 10:22 AM EST Hospital Encounter [facility] [address] [place] [address] Social History Tobacco Use Types Packs/Day Years Used Date Smoking Tobacco: Former Cigarettes Q uit: 11/04/2024 Cigars Started: 1990 Passive [...] Care Team (Late st Contact Info) Description 07/19/2025 3:45 PM EDT Office Visit [facility] [address] [place] [address] Radhika He MD [address] [place] [address] 08/18/2025 2:00 PM EST Procedure visit [facility] [address] [facility] [place] [phone] 08/18/2025 2:30 PM EST Office Visit [facility] [address] [facility] [place] [address] Kaushik Galindo DO [address] [place] [address] documented as of this encounter Procedures Procedure [...] on filedocumented in this encounter Care Teams Cat Wagon Operator Relationship Specialty Start Date End Date Lola Sweeney APRN PCP - General Internal Medicine 10/01/22 05/30/24 documented as of this encounter
--- OUTSIDE RECORDS SUMMARY | 2024-08-25 16:35 | XMS_ITS | Encounter Summary ---
[facility] [address] [place] [address] Care Team Providers Care Commercial Real Estate Broker Name Role Phone Lola Sweeney APRN Primary Care Provider [phone] Encounter Details Date Type Department Care Team (Late st Contact Info) Description 08/25/2024 3:35 PM EST Hospital Encounter [facility] PULMONARY & CRITICAL CARE MEDICINE [address] [place] [address] Social History Tobacco Use Types [...] Description 07/19/2025 3:45 PM EDT Office Visit [facility] CARDIOLOGY [address] [place] [address] Radhika He MD [address] [place] [address] 08/18/2025 2:00 PM EST Procedure visit [facility] PULMONARY & CRITICAL CARE MEDICINE [address] [facility] [place] [address] 08/18/2025 2:30 PM EST Office Visit [facility] PULMONARY & CRITICAL CARE MEDICINE [address] [facility] [place] [address] Kaushik Galindo DO [address] [place] [address] documented as of this encounter Procedures Procedure [...] MD 08/27/2024 11:25 AM EST Workstation ID: [id number] Narrative 08/27/2024 11:25 AM EST XR CHEST [...] MD 08/27/2024 11:25 AM EST Workstation ID: [id number] us Helen Montoya MD IMG DIAGNOSTIC IMAGING O RDERABLES Final Result documented in this encounter Visit Diagnoses Not on filedocumented in this encounter Care Teams Commercial Real Estate Broker Relationship Specialty Start Date End Date Lola Sweeney APRN [address] [address] PCP - General Internal Medicine 05/31/24 documented as of this encounter
[2025-06-29 17:07] LABS: Hematocrit 44.8 % (42.0-52.0); Hemoglobin 14.7 g/dL (14.1-18.0); Immature Granulocytes % 0.3 %; Mean Corpuscular HGB Conc 32.8 g/dL (31.8-35.4); Mean Corpuscular Hemoglobin 29.9 pg (27.0-31.2); Mean Corpuscular Volume 91.2 fl (80-94); Nucleated Red Blood Cells % 0 %; Platelet Count 310 K/mm3 (142-424); Red Blood Count 4.91 M/mm3 (4.60-6.20); Red Cell Distribution Width-SD 41.6 fL; White Blood Count 7.5 K/mm3 (4.8-10.8)
[2025-06-29 18:16] LABS: Albumin Level 4.0 g/dl (3.5-5.0); Chloride 103 mmol/L (98-107); Sodium 138 mmol/L (136-145)
[2025-06-29 18:17] LABS: Potassium 4.4 mmoL/L (3.5-5.1)
[2025-06-29 18:19] LABS: Alanine Aminotransferase 26 U/L (12-78); Albumin/Globulin Ratio 1.7 (1.1-1.8); Alkaline Phosphatase 57 U/L (38-126); Anion Gap 13.4 mEq/L (5-15); Aspartate Amino Transferase 33 U/L (17-59); Bilirubin,Total 0.4 mg/dl (0.2-1.3); Blood Urea Nitrogen 9 mg/dl (9-20); Carbon Dioxide 26 mmol/L (22.0-30.0); Cholesterol 140 mg/dl (140-200); Creatinine,Serum 1.00 mg/dl (0.66-1.25); Estimated Glomerular Filt Rate 78 ml/min (>60); GFR (African American) 95 ML/MIN (>60); Globulin 2.4 g/dL (1.3-3.2); Iron 117 ug/dL (49-181); Total Protein,Serum 6.4 g/dl (6.3-8.2); Triglycerides 284 mg/dl (30-150)
[2025-06-29 18:20] LABS: Calcium 9.9 mg/dl (8.4-10.2); Glucose 94 mg/dl (74-100); HDL Cholesterol 36 mg/dl (40-60)
[2025-06-29 18:29] LABS: Total Iron Binding Capacity 418 ug/dL (261-462)
[2025-06-29 18:51] LABS: Thyroid Stimulating Hormone 1.62 uIU/mL (0.465-4.68)
[2025-06-29 19:18] LABS: Vitamin B12 429 pg/mL (239-931)
[2025-06-29 20:21] LABS: 25-OH Vitamin D, Total 45.6 ng/mL (30-100)
[2025-06-29 20:55] LABS: Hemoglobin A1C 6.0 % (4.0-6.0)
--- OUTSIDE RECORDS SUMMARY | 2025-07-03 09:19 | XMS_ITS | Encounter Summary ---
Author Organization [facility] Address [address] [place] [address] Care Team Providers Care Orthotic Practitioner Name Role Phone Lola Sweeney APRN Primary Care Provider [phone] Reason for Visit * Reason Comments Med Refill Encounter Details Date Type Department Care Team (Late st Contact Info) Description 05/08/2025 Refill [facility]IOLOG[facility] [address] [facility] [address] [place] [address] Radhika He MD [address] [facility] [address] [place] [address] Med Refill Social History Tobacco Use Types Packs/Day Years [...] encounter Miscellaneous Notes * Telephone Encounter - Joyce Okeefe RN - 05/08/2025 10:46 AM EDT 10/27/24 Trigs 125 Chol 196 LDL 25 HDL 33 Total Bili 0.6 AST 31 ALT 33 Total Prot 6.4 Albumin 4.2 documented in this encounter Plan of Treatment Upcoming Encounters Date Type Department Care Team (Late st Contact Info) Description 07/19/2025 3:45 PM EDT Office Visit [facility] [address] [facility] [address] [place] [phone] Radhika He MD [address] [facility] [address] [place] [address] 08/18/2025 2:00 PM EST Procedure visit [facility] PULMONARY & CRITICAL CARE MEDICINE [address] [facility] [place] [address] 08/18/2025 2:30 PM EST Office Visit [facility] PULMON[facility] & CRITICAL CARE MEDICINE [address] [place] [phone] Kaushik Galindo, [address] [place] [address] documented as of this encounter Visit Diagnoses Not on filedocumented in this encounter Care Teams Orthotic Practitioner Relationship Specialty Start Date End Date Lola Sweeney APRN [address] [place] [address] [facility] [place] [address] PCP - General Internal Medicine 05/31/24 documented as of this encounter
--- OUTSIDE RECORDS SUMMARY | 2025-07-03 09:19 | XMS_ITS | Encounter Summary ---
[facility] Address [address] [place] [address] Care Team Providers Care Application Systems Engineer Name Role Phone Lola Sweeney TIM Primary Care Provider [phone] Reason for Visit * Reason Comments Med Refill Encounter Details Date Type Department Care Team (Late st Contact Info) Description 06/08/2025 Refill [facility] C[facility]OLOG[facility] [address] [facility] [address] [place] [address] Ela Elizalde, LOGISTICS SOLUTION MANAGER [address] [facility] [address] [place] [address] Med Refill Social History Tobacco Use Types [...] Description 07/19/2025 3:45 PM EDT Office Visit [facility] CARDIOLOGY [address] [place] [id number] Radhika He MD [address] [facility] [address] [address] [place] [address] 08/18/2025 2:00 PM EST Procedure visit [facility] [address] [facility] [address] 08/18/2025 2:30 PM EST Office Visit [facility] [address] [facility] [id number] Kaushik Galindo DO [address] [place] [address] documented as of this encounter Visit Diagnoses Not on filedocumented in this encounter Care Teams Application Systems Engineer Relationship Specialty Start Date End Date Lola Sweeney APRN [address] [place] [phone] PCP - General Internal Medicine 05/31/24 documented as of this encounter
--- OUTSIDE RECORDS SUMMARY | 2025-07-03 09:19 | XMS_ITS | Clinical Summary ---
Author Organization [facility] Address [address] [place] [address] Care Team Providers Care Nurse Auditor Name Role Phone Lola Sweeney TIM Primary Care Provider [phone] Allergies Active Allergy Reactions Criticality Noted Date [...] 150 MG 24 hr tablet 4 Active Airsupra 90-80 MCG/ACT aerosol 5 Active [...] 1 puff Daily. 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 12/05/2022 Mucopurulent chronic bronchitis 12/05/2022 Bicuspid aortic valve 09/10/2018 Essential hypertension 09/10/2018 Resolved Problems Problem Noted Date Diagnosed Date Resolved Date Acute bronchospasm 12/29/2024 Encounters Date Type Department Care Team Description 06/08/2025 Refill [facility] CARDIOLOGY [address] [facility] [address] [place] [address] Ela Elizalde APRN Med Refill 05/08/2025 Refill [facility]ARDIOLOG[facility] [address] [facility] [address] [place] [address] Radhika He MD Med Refill from Last 3 Months Immunizations Immunization Administration [...] Visit [facility] [address] [facility] [address] [place] [address] Radhika He MD [address] [facility] [address] [place] [address] 08/18/2025 2:00 PM EST Procedure visit [facility] PULMONARY & CRITICAL CARE MEDICINE [address] [place] [address] 08/18/2025 2:30 PM EST Office Visit [facility]UL[facility] MEDICINE [address] [facility] [address] Kaushik Galindo DO [address] [place] [address] Health Maintenance Due Date Last Done Comments Pneumococcal Vaccine 50+ (1 of 2 - PCV) 1991 COLOGUARD 2017 COLON CANCER SCREENING 5 YEA R SIGMOIDOSCOPY 2017 COLONOSCOPY 2017 [address] CANCER SCREENING 2017 CT COLONOGRAPHY 2017 FECAL OCCULT BLOOD TEST 2017 FIT Testing (1 year) 2017 ANNUAL PHYSICAL 09/01/2018 HEPATITIS C SCREENING 09/01/2018 ZOSTER VACCINE (1 of 2) 2022 INFLUENZA VACCINE 05/05/2025 08/04/2024 TDAP/TD VACCINES (3 - Td or Tdap) 03/28/2032 022, 12/06/1996 Insurance [facility] PPO Care Teams Nurse Auditor Relationship Specialty Start Date End Date Lola Sweeney APRN [address] [place] [address] KISHANHELENATOBY KEYES [id number] PCP - General Internal Medicine 05/31/24
== END 2025-06-29 23:59 ==
LOC: LAB.DROPOF 07-03 09:15
PROVIDERS: PCP Nurse Practitioner Family; Visit Provider Nurse Practitioner Family
DX: R74.8 Abnormal levels of other serum enzymes (principal); R53.83 Other fatigue
CPT/HCPCS: 80053; 80061; 82306; 82607; 83036; 83540; 83550; 84443; 85025; G0103

== ENCOUNTER 2025-08-23 13:55 | Outpatient (CLI) | payer BC, SELFPAY ==
--- OUTSIDE RECORDS SUMMARY | 2022-12-05 10:22 | XMS_ITS | Encounter Summary ---
[facility] Address [address] [place] [address] Care Team Providers Care Supervisor Cigar Making Machine Name Role Phone Lola Sweeney APRN Primary Care Provider [phone] Encounter Details Date Type Department Care Team (Late st Contact Info) Description 12/05/2022 10:22 AM EST Hospital Encounter [facility] [address] [place] [address] Social History Tobacco Use Types Packs/Day Years Used Date Smoking Tobacco: Former Cigarettes 1 30 Q uit: 11/04/2024 Cigars Started: 1990 Passive Smoke Exposure: Past Smokeless Tobacco: Never Alcohol Use Standard Drinks/Week Comments Not Currently 2 (1 standard drink = 0.6 oz pur e alcohol) AUDIT-C Answer Date Recorded Q1: How often do you have a drink containing alc ohol? Never 11/07/2020 Q2: How many drinks containi ng alcohol do you have on a typical day when you are drinking? 1 or 2 11/07/2020 Frequency of Binge Drinking Not on file 12/2020 Sex and Gender Information Value Date Recorded Sex Assigned at Male 12/01/2024 2:05 PM EST Legal Sex Male 10:21 AM EDT Gender Identity Not on file Sexual Orientation Not on file documented as of this encounter Plan of Treatment Upcoming Encounters Date Type Department Care Team (Late st Contact Info) Description 08/22/2026 3:15 PM EST Office Visit [facility] [address] [place] [address] Radhika He MD [address] [place] [address] documented as of this encounter Procedures Procedure Name Priority Date/Time Associated Diagnosis Comments XR CHEST PA AND LATERAL Routine 12/05/2022 10:29 AM EST Shortness of breath documented in this encounter Results * XR Chest PA & Lateral (12/05/2022 10:29 AM EST) Anatomical Region Laterality Modality Body, Chest N/A Radiographic Carey ging Narrative 09/09/2023 9:45 PM EST December 05, 2022, PA and lateral chest x-ray Lungs are well-inflated Calcified granulomatous changes Cardiac silhouette is not enlarged Left upper lobe with streaking postinflammatory scarring us Helen Montoya MD IMG DIAGNOSTIC IMAGING O RDERABLES Final Result documented in this encounter Visit Diagnoses Not on filedocumented in this encounter Care Teams Supervisor Cigar Making Machine Relationship Specialty Start Date End Date Lola Sweeney APRN PCP - General Internal Medicine 10/01/22 05/30/24 documented as of this encounter
--- OUTSIDE RECORDS SUMMARY | 2024-08-25 15:35 | XMS_ITS | Encounter Summary ---
[facility] Address [address] [place] [address] Care Team Providers Care Distribution District Supervisor Name Role Phone Lola Sweeney APRN Primary Care Provider Encounter Details Date Type Department Care Team (Late st Contact Info) Description 08/25/2024 3:35 PM EST Hospital Encounter [facility] PULMONARY & CRITICAL CARE MEDICINE [address] [place] [address] Social History Tobacco Use Types [...] Description 08/22/2026 3:15 PM EST Office [address] 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 Electronically Signed: Angeli Winters MD 08/27/2024 11:25 AM EST Workstation ID: [id number] Narrative 08/27/2024 11:25 AM EST XR CHEST PA AND LATERAL Date of Exam: 08/25/2024 3:38 PM EST Indication: SOB Comparison: 12/05/2022. Findings: There are no airspace consolidations. No pleural fluid. No pneumothorax. The pulmonary vasculature appears within normal limits. The cardiac and mediastinal silhouette appear unremarkable. No acute osseous abnormality identified. Procedure Note Angeli Winters MD - 08/27/2024 XR CHEST PA AND LATERAL Date of Exam: 08/25/2024 3:38 PM EST Indication: SOB Comparison: 12/05/2022. Findings: There are no airspace consolidations. No pleural fluid. No pneumothorax.The pulmonary vasculature appears within normal limits. The cardiac andmediastinal silhouette appear unremarkable. No acute osseous abnormalityidentified. IMPRESSION: Impression: No acute cardiopulmonary process. Electronically Signed: Angeli Wintres MD 08/27/2024 11:25 AM EST Workstation ID: [id number] Helen Montoya MD IMG DIAGNOSTIC IMAGING O RDERABLES Final Result documented in this encounter Visit Diagnoses Not on filedocumented in this encounter Care Teams Distribution District Supervisor Relationship Specialty Start Date End Date Lola Sweeney APRN [address] [place] [address] [place] [place] [address] PCP - General Internal Medicine 05/31/24 documented as of this encounter
--- OUTSIDE RECORDS SUMMARY | 2025-08-04 10:00 | XMS_ITS | Encounter Summary ---
Author Organization [facility] Address [address] [place] [address] Care Team Providers Care Pest Control Service Representative Name Role Phone Lola Sweeney APRN Primary Care Provider Reason for Visit * Reason Comments Bicuspid aortic valve Chest Pain Dizziness Encounter Details Date Type Department Care Team (Late st Contact Info) Description 08/04/2025 11:00 AM EDT Office Visit [facility] C[facility]OLOG[facility] [address] [facility] [address] [place] [address] Maria C Robertson PA-C [address] [facility] [address] [place] [id number] Bicuspid aortic valve (Primary Dx); Coronary artery calcification; Essential hypertension; Hyperlipidemia LDL goal <70 Social History Tobacco Use Types Packs/Day Years [...] Sign Reading Time Taken Comments Blood Pressure 118/72 08/04/2025 11:13 AM EDT Pulse 66 08/04/2025 11:13 AM EDT Temperature - - Respiratory Rate - - Oxygen Saturation 96% 08/04/2025 11:13 AM EDT Inhaled Oxygen Concentration - - Weight 103 kg (226 lb 6.4 oz) 08/04/2025 11:13 A M EDT Height 177.8 cm (5' 10 ) 08/04/2025 11:13 AM EDT Body Mass Index 32.49 08/04/2025 11:13 AM EDT documented in this encounter Progress Notes * Maria C Robertson PA-C - 08/04/2025 11:00 AM EDTAssociated Order(s): ECG 12 Lead Post-Procedure Diagnose(s): Essential hypertension; Coronary artery calcification [facility] Cardiology Date: 08/04/2025 Patient ID: Guevara Christy is a 54 y.o. male : 1970 Contact: Chief Complaint: Chief Complaint Patient presents with Bicuspid aortic valve Chest Pain Dizziness Problem List: Valvular heart disease: Bicuspid aortic valve. Echocardiogram, 06/19/2006, showing an LVEF (60%), mild MR, mild TR and mild AI with bicuspid aortic valve. Echocardiogram, 12/21/2013 showing trace AI, mild MR and normal LV systolic function. Echocardiogram, 09/10/18: EF 55%, bicuspid aortic valve. Trace to mild AR, mild MR Echocardiogram, 10/03/2022; EF 55%. Bicuspid AV. Trace AI. Trace to mild MR. Trace TR. No change from 2018. Echo, 06/07/2024: EF 60%. Trace AI. RVSP 21 mmHg. Chest pain/unstable angina: Numerous ER visits to [facility] for chest pain. Myocardial perfusion study, January 2007: LVEF (53%) with no evidence of ischemia. Exercise duration of 11 minutes and 31 seconds. Shortness of breath noted but without chest discomfort. Cardiac catheterization, 05/02/2011, Radhika He MD, revealing normal coronary arteries and normal LV systolic function. Stress test 12/17/2022: Coronary calcifications but no myocardial perfusion defect Hypertension. Pneumonitis: Chest pain syndrome. Negative myocardial perfusion scanning x2 which was normal. Negative myocardial perfusion scanning, January 2007. Recurrent from bathroom wheel cleaner 04/2017 Chronic bronchitis/asthma. GERD. History of tobacco abuse, quit 10/2024 Allergies Allergen Reactions Amoxicillin Other (See Comments) Patients doctor advised he cannot take this med Penicillins GI Intolerance Current Outpatient Medications: Airsupra 90-80 MCG/ACT aerosol, [...] tablet by mouth Daily., Disp: , Rfl: EPINEPHrine (EPIPEN) 0.3 MG/0.3ML solution auto-injector injection, , Disp: , Rfl: Hraaauddtkq-Whglbtwmh-Rnvqge (Trelegy Ellipta) 200-62.5-25 MCG/ACT inhaler, Inhale 1 puff Daily., Disp: 1 each, Rfl: 0 nystatin (MYCOSTATIN) 100,000 unit/mL suspension, Take 5 mL by mouth 4 (Four) Times a Day., Disp: 280 mL, Rfl: 0 omeprazole (priLOSEC) 40 MG capsule, Take 1 capsule by mouth Daily., Disp: , Rfl: rosuvastatin (CRESTOR) 5 MG tablet, TAKE 1 TABLET BY MOUTH DAILY, Disp: 90 tablet, Rfl: 3 tadalafil (CIALIS) 5 MG tablet, Take 1 tablet by mouth Daily As Needed for Erectile Dysfunction., Disp: , Rfl: History of Present Illness: Guevara Christy is a 54 y.o. male who is here today for annual visit for history of bicuspid aortic valve, hypertension, and chest pain with a history of coronary calcifications. Since last visit patient states that he feels a little bit more short of breath but thinks it may be related to his lungs. 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 He states that intermittently he will have to stop and take a break. He has a follow-up appointment with his operations associate in a couple of weeks. Patient also states he will have some lower extremity swelling at the end of the day but is on his feet for multiple hours a day and does not wear compression stockings. Patient does state he does not sleep very well at night. At times he feels as if he is smothering and needs to have a fan on him blowing. The following portions of the patient's history were reviewed and updated as appropriate: allergies, current medications and problem list. Pertinent positives as listed in the HPI. All other systems reviewed are negative. Vitals: 08/04/25 1113 BP: 118/72 BP Location: Right arm Patient Position: Sitting Cuff Size: Adult Pulse: 66 SpO2: 96% Weight: 103 kg (226 lb 6.4 oz) Height: 177.8 cm (70 ) Body mass index is 32.49 kg/m??. Physical Exam: General: Alert and oriented. Neck: Jugular venous pressure is within normal limits. Carotids have normal upstrokes without bruits. Cardiovascular: Regular rate and rhythm. No murmur, gallop or rub. Lungs: Mildly diminished globally with scattered rhonchi. Extremities: Trace bilateral lower extremity edema. Skin: Warm and dry. Neurologic: Nonfocal. Diagnostic data (reviewed with patient): 10/2024 Total cholesterol 196, trig 125, LDL 135, HDL 33 ECG 12 Lead Date/Time: 08/04/2025 11:49 AM Performed by: Maria C Robertson PA-C Authorized by: Maria C Robertson PA-C Comparison: compared with previous ECG from 11/13/2022 Similar to previous ECG Rhythm: sinus rhythm BPM: 66 Conduction: incomplete right bundle branch block Clinical impression: normal ECG Assessment: 1. Bicuspid aortic valve 2. Coronary artery calcification 3. Essential hypertension 4. Hyperlipidemia LDL goal <70 Plan: Patient is having some increased shortness of breath and some mild swelling. I am unsure if his heart is contributing to this. Patient does have follow-up with pulmonology in 2 weeks. In the meantimewe will get some blood work for further evaluation especially given patient had normal stress test 2 years ago as well as an echocardiogram showing no worsening valvular or structural heart problems. Continue aspirin 325 for antiplatelet therapy. Continue Lotrel 10-20 daily for hypertension. Did discuss with the patient that amlodipine could becontributing to his lower extremity swelling but he has been on this medicine for quite some time. Continue rosuvastatin 5 mg daily and check a lipid panel today as patient is fasting. Will await blood work and evaluation by pulmonology to see how much his lungs are contributing to his symptoms. Can consider further testing especially if proBNP is elevated. F/up in 12 months, sooner if needed. Maria C Robertson PA-C documented in this encounter Plan of Treatment Upcoming Encounters Date Type Department Care Team (Late st Contact Info) Description 08/22/2026 3:15 PM EST Office Visit [facility] [address] [facility] [address] [place] [address] Radhika He MD [address] [facility] [address] [place] [address] documented as of this encounter Procedures Procedure Name Priority Date/Time Associated Diagnosis Comments ECG 12-LEAD Routine 08/04/2025 Coronary artery calcification Essential hypertension documented in this encounter Results * proBNP (08/04/2025 12:15 PM EDT) proBNP 61.5 0.0 - 900.0 pg/mL 08/04/2025 7:45 PM EDT [facility] Blood Venipuncture / Unknown 08/04/2025 12:15 PM EDT 08/04/2025 12:15 PM EDT Narrative [facility] - 08/04/2025 7:45 PM EDT This assay is used as an aid in the diagnosis of individuals suspected of having heart failure. It can be used as an aid in the diagnosis of acute decompensated heart failure (ADHF) in patients presenting with signs and symptoms of ADHF to the emergency department (ED). In addition, NT-proBNP of <300 pg/mL indicates ADHF is not likely. Age Range Result Interpretation NT-proBNP Concentration (pg/mL: <50 Positive >450 Romo 300-450 Negative <300 50-75 Positive >900 Romo 300-900 Negative <300 >75 Positive >1800 Romo 300-1800 Negative <300 Maria C Robertson PA-C LAB BLOOD ORDERABLES Final Re sult [facility]
[address] [place] [address], * Basic Metabolic Panel (08/04/2025 12:15 PM EDT) Glucose 91 65 - 99 mg/dL 08/04/2025 7:45 PM EDT [facility] BUN 12.0 6.0 - 20.0 mg/dL 08/04/2025 7:45 PM EDT [facility] Creatinine 0.96 0.76 - 1.27 mg/dL 08/04/2025 7:45 PM EDT [facility] Sodium 140 136 - 145 mmol/L 08/04/2025 7:45 PM EDT [facility] Potassium 4.1 3.5 - 5.2 mmol/L 08/04/2025 7:45 PM EDT [facility] Chloride 104 98 - 107 mmol/L 08/04/2025 7:45 PM EDT [facility] CO2 23.3 22.0 - 29.0 mmol/L 08/04/2025 7:45 PM EDT [facility] Calcium 9.7 8.6 - 10.5 mg/dL 08/04/2025 7:45 PM EDT [facility] BUN/Creatinine Ratio 12.5 7.0 - 25.0 08/04/2025 7:45 PM EDT [facility] Anion Gap 12.7 5.0 - 15.0 mmol/L 08/04/2025 7:[facility] eGFR 95.1 >60.0 mL/min/1.7 3 08/04/2025 7:45 PM EDT [facility] Blood Venipuncture / Unknown 08/04/2025 12:15 PM EDT 08/04/2025 12:15 PM EDT [facility] - 08/04/2025 7:45 PM EDT GFR Categories in Chronic Kidney Disease (CKD) GFR Category GFR (mL/min/1.73) Interpretation G1 90 or greater Normal or high (1) G2 60-89 Mild decrease (1) G3a 45-59 Mild to moderate decrease G3b 30-44 Moderate to severe decrease G4 15-29 Severe decrease G5 14 or less Kidney failure (1)In the absence of evidence of kidney disease, neither GFR category G1 or G2 fulfill the criteria for CKD. eGFR calculation 2020 CKD-EPI creatinine equation, which does not include race as a factor Maria C Robertson PA-C LAB BLOOD ORDERABLES Final Re sult [facility]
[address] [place] [address], * CBC (No Diff) (08/04/2025 12:15 PM EDT) WBC 7.14 3.40 - 10.80 10*3/mm3 08/04/2025 6:56 PM EDT [facility] RBC 4.76 4.14 - 5.80 10*6/mm3 08/04/2025 6:56 PM EDT [facility] Hemoglobin 14.6 13.0 - 17.7 g/dL 08/04/2025 6:56 PM EDT [facility] Hematocrit 43.7 37.5 - 51.0 % 08/04/2025 6:56 PM EDT [facility] MCV 91.8 79.0 - 97.0 fL 08/04/2025 6:56 PM EDT [facility] MCH 30.7 26.6 - 33.0 pg 08/04/2025 6:56 PM EDT [facility] MCHC 33.4 31.5 - 35.7 g/dL 08/04/2025 6:56 PM EDT [facility] RDW 12.3 12.3 - 15.4 % 08/04/2025 6:56 PM EDT [facility] RDW-SD 40.7 37.0 - 54.0 fl 08/04/2025 6:56 PM EDT [facility] MPV 10.9 6.0 - 12.0 fL 08/04/2025 6:56 PM EDT [facility] Platelets 328 140 - 450 10*3/mm3 08/04/2025 6:56 PM EDT [facility] Blood Venipuncture / Unknown 08/04/2025 12:15 PM EDT 08/04/2025 12:15 PM EDT Maria C Robertson PA-C LAB BLOOD ORDERABLES Final sult [facility]
[address] [place] [address], * (ABNORMAL) Lipid Panel (08/04/2025 12:15 PM EDT) Total Cholesterol 135 0 - 200 mg/dL 08/04/2025 7:45 PM EDT [facility] Triglycerides 125 0 - 150 mg/dL 08/04/2025 7:45 PM EDT [facility] HDL Cholesterol 36(L) 40 - 60 mg/dL 08/04/2025 7:45 PM EDT [facility] LDL Cholesterol 76 0 - 100 mg/dL 08/04/2025 7:45 PM EDT [facility] VLDL Cholesterol 23 5 - 40 mg/dL 08/04/2025 7:45 PM EDT [facility] LDL/HDL Ratio 2.06 08/04/2025 7:45 PM EDT [facility] Blood Venipuncture / Unknown 08/04/2025 12:15 PM EDT 08/04/2025 12:15 PM EDT Narrative [facility] - 08/04/2025 7:45 PM EDT Cholesterol Reference Ranges (U.S. Department of Health and Human Services ATP III Classifications) Desirable <200 mg/dL Borderline High 200-239 mg/dL High Risk >240 mg/dL Triglyceride Reference Ranges (U.S. Department of Health and Human Services ATP III Classifications) Normal <150 mg/dL Borderline High 150-199 mg/dL High 200-499 mg/dL Very High >500 mg/dL HDL Reference Ranges (U.S. Department of Health and Human Services ATP III Classifications) Low <40 mg/dl (major risk factor for CHD) High >60 mg/dl ('negative' risk factor for CHD) LDL Reference Ranges (U.S. Department of Health and Human Services ATP III Classifications) Optimal <100 mg/dL Near Optimal 100-129 mg/dL Borderline High 130-159 mg/dL High 160-189 mg/dL Very High >189 mg/dL LDL is calculated using the NIH LDL-C calculation. us Maria C Robertson PA-C LAB BLOOD ORDERABLES Final Re sult [facility]
[address] [place] [address], * ECG 12-LEAD (08/04/2025) Narrative 08/04/2025 Maria C Robertson PA-C 08/04/2025 11:52 AM ECG 12 Lead Date/Time: 08/04/2025 11:49 AM Performed by: Maria C Robertson PA-C Authorized by: Maria C Robertson PA-C Comparison: compared with previous ECG from 11/13/2022 Similar to previous ECG Rhythm: sinus rhythm BPM: 66 Conduction: incomplete right bundle branch block Clinical impression: normal ECG Procedure Note Maria C Robertson PA-C - 08/04/2025 11:00 AM EDT [facility] Cardiology Date: 08/04/2025 Patient ID: Guevara Christy is a 54 y.o. male : 1970 Contact: Chief Complaint: Chief Complaint Patient presents with Bicuspid aortic valve Chest Pain Dizziness Problem List: Valvular heart disease: Bicuspid aortic valve. Echocardiogram, 06/19/2006, showing an LVEF (60%), mild MR, mild TR andmild AI with bicuspid aortic valve. Echocardiogram, 12/21/2013 showing trace AI, mild MR and normal LVsystolic function. Echocardiogram, 09/10/18: EF 55%, bicuspid aortic valve. Trace to mild AR,mild MR Echocardiogram, 10/03/2022; EF 55%. Bicuspid AV. Trace AI. Trace to mildMR. Trace TR. No change from 2018. Echo, 06/07/2024: EF 60%. Trace AI. RVSP 21 mmHg. Chest pain/unstable angina: Numerous ER visits to [facility] for chest pain. Myocardial perfusion study, January 2007: LVEF (53%) with no evidence ofischemia. Exercise duration of 11 minutes and 31 seconds. Shortness ofbreath noted but without chest discomfort. Cardiac catheterization, 05/02/2011, Radhika He MD, revealingnormal coronary arteries and normal LV systolic function. Stress test 12/17/2022: Coronary calcifications but no myocardial perfusiondefect Hypertension. Pneumonitis: Chest pain syndrome. Negative myocardial perfusion scanning x2 which was normal. Negative myocardial perfusion scanning, January 2007. Recurrent from bathroom wheel cleaner 04/2017 Chronic bronchitis/asthma. GERD. History of tobacco abuse, quit 10/2024 Allergies Allergen Reactions Amoxicillin Other (See Comments) Patients doctor advised he cannot take this med Penicillins GI Intolerance Current Outpatient Medications: Airsupra 90-80 MCG/ACT aerosol, , Disp: , Rfl: albuterol (PROVENTIL) (2.5 MG/3ML) 0.083% nebulizer solution, Take 2.5mg by nebulization 4 (Four) Times a Day As Needed for Wheezing., Disp: 120each, Rfl: 11 albuterol sulfate HFA 108 (90 Base) MCG/ACT inhaler, Inhale 2 puffsEvery 4 (Four) Hours As Needed., Disp: , Rfl: amLODIPine-benazepril (LOTREL) 10-20 MG per capsule, Take 1 capsule bymouth Daily., Disp: 30 capsule, Rfl: 11 aspirin 325 MG tablet, Take 1 tablet by mouth Daily., Disp: , Rfl: EPINEPHrine (EPIPEN) 0.3 MG/0.3ML solution auto-injector injection, ,Disp: , Rfl: Szqfwbopzii-Qtkvavicz-Mmbqdk (Trelegy Ellipta) 200-62.5-25 MCG/ACTinhaler, Inhale 1 puff Daily., Disp: 1 each, Rfl: 0 nystatin (MYCOSTATIN) 100,000 unit/mL suspension, Take 5 mL by mouth 4(Four) Times a Day., Disp: 280 mL, Rfl: 0 omeprazole (priLOSEC) 40 MG capsule, Take 1 capsule by mouth Daily.,Disp: , Rfl: rosuvastatin (CRESTOR) 5 MG tablet, TAKE 1 TABLET BY MOUTH DAILY, Disp:90 tablet, Rfl: 3 tadalafil (CIALIS) 5 MG tablet, Take 1 tablet by mouth Daily As Neededfor Erectile Dysfunction., Disp: , Rfl: History of Present Illness: Guevara Christy is a 54 y.o. male who ishere today for annual visit for history of bicuspid aortic valve,hypertension, and chest pain with a history of coronary calcifications.Since last visit patient states that he feels a little bit more short ofbreath but thinks it may be related to his lungs. 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 He states that intermittently hewill have to stop and take a break. He has a follow-up appointment withhis operations associate in a couple of weeks. Patient also states he will havesome lower extremity swelling at the end of the day but is on his feet formultiple hours a day and does not wear compression stockings. Patientdoes state he does not sleep very well at night. At times he feels as ifhe is smothering and needs to have a fan on him blowing. The following portions of the patient's history were reviewed and updatedas appropriate: allergies, current medications and problem list. Pertinent positives as listed in the HPI. All other systems reviewed arenegative. Vitals: 08/04/25 1113 BP: 118/72 BP Location: Right arm Patient Position: Sitting Cuff Size: Adult Pulse: 66 SpO2: 96% Weight: 103 kg (226 lb 6.4 oz) Height: 177.8 cm (70 ) Body mass index is 32.49 kg/m . Physical Exam: General: Alert and oriented. Neck: Jugular venous pressure is within normal limits. Carotids havenormal upstrokes without bruits. Cardiovascular: Regular rate and rhythm. No murmur, gallop or rub. Lungs: Mildly diminished globally with scattered rhonchi. Extremities: Trace bilateral lower extremity edema. Skin: Warm and dry. Neurologic: Nonfocal. Diagnostic data (reviewed with patient): 10/2024 Total cholesterol 196, trig 125, LDL 135, HDL 33 ECG 12 Lead Date/Time: 08/04/2025 11:49 AM Performed by: Maria C Robertson PA-C Authorized by: Maria C Robertson PA-C Comparison: compared with previousECG from 11/13/2022 Similar to previous ECG Rhythm: sinus rhythm BPM: 66 Conduction: incomplete right bundle branch block Clinical impression: normal ECG Assessment: 1. Bicuspid aortic valve 2. Coronary artery calcification 3. Essential hypertension 4. Hyperlipidemia LDL goal <70 Plan: Patient is having some increased shortness of breath and some mildswelling. I am unsure if his heart is contributing to this. Patient doeshave follow-up with pulmonology in 2 weeks. In the meantime we will getsome blood work for further evaluation especially given patient had normalstress test 2 years ago as well as an echocardiogram showing no worseningvalvular or structural heart problems. Continue aspirin 325 for antiplatelet therapy. Continue Lotrel 10-20 daily for hypertension. Did discuss with thepatient that amlodipine could be contributing to his lower extremityswelling but he has been on this medicine for quite some time. Continue rosuvastatin 5 mg daily and check a lipid panel today as patientis fasting. Will await blood work and evaluation by pulmonology to see how much hislungs are contributing to his symptoms. Can consider further testingespecially if proBNP is elevated. F/up in 12 months, sooner if needed. Maria C Robertson PA-C Maria C Robertson PA-C ECG ORDERABLES Final Result documented in this encounter Visit Diagnoses Diagnosis Bicuspid aortic valve- Primary Congenital insufficiency of aortic valve Coronary artery calcification Essential hypertension Unspecified essential hypertension Hyperlipidemia LDL goal <70 Other and unspecified hyperlipidemia documented in this encounter Care Teams Pest Control Service Representative Relationship Specialty Start Date End Date Lola Sweeney APRN [address] [address] [facility] [address] PCP - General Internal Medicine 05/31/24 documented as of this encounter
--- OUTSIDE RECORDS SUMMARY | 2025-08-04 11:30 | XMS_ITS | Encounter Summary ---
Author Organization [facility] Address [address] [place] [address] Care Team Providers Care Group Leader Semiconductor Testing Name Role Phone Lola Sweeney APRN Primary Care Provider Encounter Details Date Type Department Care Team (Late st Contact Info) Description 08/04/2025 12:30 PM EDT Lab LABORATORY [address] [place] [address] Essential hypertension; Hyperlipidemia LDL goal <70 Social [...] Description 08/22/2026 3:15 PM EST Office Visit [facility] [address] [facility] [address] [place] [phone] Radhika He MD [address] [facility] [address] [place] [address] documented as of this encounter Procedures Procedure Name Priority Date/Time Associated Diagnosis Comments PROBNP Routine 08/04/2025 12:15 PM EDT Essential hypertension CBC (NO DIFF) Routine 08/04/2025 12:15 PM EDT Essential hypertension LIPID PANEL Routine 08/04/2025 12:15 PM EDT Essential hypertension Hyperlipidemia LDL goal <70 BASIC METABOLIC PANEL Routine 08/04/2025 12:15 PM EDT Essential hypertension documented in this encounter Results * proBNP (08/04/2025 12:15 PM EDT) proBNP 61.5 0.0 - 900.0 pg/mL 08/04/2025 7:45 PM EDT [facility] Blood Venipuncture / Unknown 08/04/2025 12:15 PM EDT 08/04/2025 12:15 PM EDT Narrative [facility] - 08/04/2025 7:45 PM EDT [...] >75 Positive >1800 Romo 300-1800 Negative <300 us Maria C Robertson PA-C LAB BLOOD ORDERABLES Final Re sult [facility]
[address] [place] [address], * Basic Metabolic Panel (08/04/2025 12:15 PM EDT) Glucose 91 65 - 99 mg/dL 08/04/2025 7:45 PM EDT [facility] BUN 12.0 6.0 - 20.0 mg/dL 08/04/2025 7:45 PM EDT [facility] Creatinine 0.96 0.76 - 1.27 mg/dL 08/04/2025 7:45 PM EDT [facility] Sodium 140 136 - 145 mmol/L 08/04/2025 7:45 PM EDT [facility] Potassium 4.1 3.5 - 5.2 mmol/L 08/04/2025 7:45 PM EDT [facility] Chloride 104 98 - 107 mmol/L 08/04/2025 7:45 PM EDT [facility] CO2 23.3 22.0 - 29.0 mmol/L 08/04/2025 7:45 PM EDT [facility] Calcium 9.7 8.6 - 10.5 mg/dL 08/04/2025 7:45 PM EDT [facility] BUN/Creatinine Ratio 12.5 7.0 - 25.0 08/04/2025 7:45 PM EDT [facility] Anion Gap 12.7 5.0 - 15.0 mmol/L 08/04/2025 7:45 PM EDT [facility] eGFR 95.1 >60.0 mL/min/1.7 3 08/04/2025 7:45 PM EDT [facility] Blood Venipuncture / Unknown 08/04/2025 12:15 PM EDT 08/04/2025 12:15 PM EDT [facility]ATORY - 08/04/2025 7:45 PM EDT [...] PA-C LAB BLOOD ORDERABLES Final Re sult [facility]
[address] [place] [address], * CBC (No Diff) (08/04/2025 12:15 PM EDT) WBC 7.14 3.40 - 10.80 10*3/mm3 08/04/2025 6:56 PM EDT [facility] RBC 4.76 4.14 - 5.80 10*6/mm3 08/04/2025 6:56 PM EDT [facility] Hemoglobin 14.6 13.0 - 17.7 g/dL 08/04/2025 6:56 PM EDT [facility] Hematocrit 43.7 37.5 - 51.0 % 08/04/2025 6:56 PM EDT [facility] MCV 91.8 79.0 - 97.0 fL 08/04/2025 6:56 PM EDT [facility] MCH 30.7 26.6 - 33.0 pg 08/04/2025 6:56 PM EDT [facility] MCHC 33.4 31.5 - 35.7 g/dL 08/04/2025 6:56 PM EDT [facility] RDW 12.3 12.3 - 15.4 % 08/04/2025 6:56 PM EDT [facility] RDW-SD 40.7 37.0 - 54.0 fl 08/04/2025 6:56 PM EDT [facility] MPV 10.9 6.0 - 12.0 fL 08/04/2025 6:56 PM EDT [facility] Platelets 328 140 - 450 10*3/mm3 08/04/2025 6:56 PM EDT [facility] Blood Venipuncture / Unknown 08/04/2025 12:15 PM EDT 08/04/2025 12:15 PM EDT Maria C Robertson PA-C LAB BLOOD ORDERABLES Final Re sult [facility]
[address] [place] [address], * (ABNORMAL) Lipid Panel (08/04/2025 12:15 PM EDT) Total Cholesterol 135 0 - 200 mg/dL 08/04/2025 7:45 PM EDT [facility] Triglycerides 125 0 - 150 mg/dL 08/04/2025 7:45 PM EDT [facility] HDL Cholesterol 36(L) 40 - 60 mg/dL 08/04/2025 7:45 PM EDT [facility] LDL Cholesterol 76 0 - 100 mg/dL 08/04/2025 7:45 PM EDT [facility] VLDL Cholesterol 23 5 - 40 mg/dL 08/04/2025 7:45 PM EDT [facility] LDL/HDL Ratio 2.06 08/04/2025 7:45 PM EDT [facility] Blood Venipuncture / Unknown 08/04/2025 12:15 PM EDT 08/04/2025 12:15 PM EDT Narrative [facility] - 08/04/2025 7:45 PM EDT [...] is calculated using the NIH LDL-C calculation. Maria C Robertson PA-C LAB BLOOD ORDERABLES Final Re sult [facility]
[address] [place] [address], documented in this encounter Visit Diagnoses Diagnosis Essential hypertension Unspecified essential hypertension Hyperlipidemia LDL goal <70 Other and unspecified hyperlipidemia documented in this encounter Care Teams Group Leader Semiconductor Testing Relationship Specialty Start Date End Date Lola Sweeney APRN [address] [place] [address] PCP - General Internal Medicine 05/31/24 documented as of this encounter
--- OUTSIDE RECORDS SUMMARY | 2025-08-18 14:30 | XMS_ITS | Encounter Summary ---
Author Organization [facility] Address [address] [place] [address] Care Team Providers Care Sterile Processing Tech Name Role Phone Lola Sweeney APRN Primary Care Provider [phone] Reason for Referral * Diagnostic Medical (Routine) - Closed Specialty Diagnoses / Procedures Referred By Dejah paul Referred To Contact Pulmonology Diagnoses Mucopurulent chronic bronchitis Procedures Spirometry with Diffusion Capacity & Lung Volumes Kaushik Galindo DO [address] [id number] Phone: tel: fax: [facility] [address] [place] [address] Phone: tel: fax: Referral ID Status Reason Start Date Expiration Date Visits Re quested Visits Authorized [id number] Closed 08/18/2025 11/17/2026 1 1 * MRI/CAT/PET Scan (Routine) - Authorized Specialty Diagnoses / Procedures Referred By Dejah paul Referred To Contact Radiology Diagnoses Personal history of smoking Procedures CT Chest Low Dose Baseline/Annual Screening WO Kaushik Galindo DO [address] [place] [address] Phone: tel: fax: [facility] [address] [place] [address] [place] [address] Phone: tel: fax: Referral ID Status Reason Start Date Expiration Date V isits Requested Visits Authorized [id number] Authorized 08/18/2025 11/17/2026 1 1 Reason for Visit * Reason Comments 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 Follow-up Encounter Details Date Type Department Care Team (Late st Contact Info) Description 08/18/2025 2:30 PM EST Office Visit [facility]UL[facility] MEDICINE [address] [place] [phone] Kaushik Galindo DO [address] [place] [address] Mucopurulent chronic bronchitis (Primary Dx); Personal history of smoking Social History Tobacco Use Types Packs/Day Years [...] Sign Reading Time Taken Comments Blood Pressure 124/84 08/18/2025 2:22 PM EST Pulse 68 08/18/2025 2:22 PM EST Temperature - - Respiratory Rate - - Oxygen Saturation 97% 08/18/2025 2:22 PM EST Inhaled Oxygen Concentration - - Weight 103 kg (226 lb) 08/18/2025 2:22 PM EST Height 177.8 cm (5' 10 ) 08/18/2025 2:22 PM EST Body Mass Index 32.43 08/18/2025 2:22 PM EST documented in this encounter Progress Notes * Kaushik Galindo, DO - 08/18/2025 2:30 PM EST Follow Up Office Note Patient Name: Guevara Christy Referring Physician: No ref. 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 male who is here today to follow-up care with Pulmonary. Patient with a past medical history significant for COPD chronic chemical inducedbronchiolitis blaring's, bicuspid aortic valve, tobacco abuse, GERD status post Ventura fundoplication and cholecystectomy. The patient is a 54-year-old male who presents for a follow-up on COPD. He reports no improvement in his condition, experiencing shortness of breath with minimal exertion.Despite discontinuing smoking a year ago, he has not observed any significant enhancement in his respiratory function. His cough has lessened, but his breathing remains compromised. He has been relatively stable since his recovery in the spring. Prior to quitting smoking, he experienced frequent illnesses, necessitating 3 to 5 courses of prednisone annually. He maintains an active lifestyle, including regular work, but struggles with breathing. He has gained approximately 30 pounds and expresses concern about potential weight gain due to increased appetite following smoking cessation. He experiences breathlessness, particularly when bending over. His fiberglass roller has recommended a follow-upvisit. He has not undergone a cardiac catheterization procedure. He also has a known valvular heartdisease. His last lung cancer screening was conducted in 2022. He is currently on Trelegy and requires refills for his inhalers. Review of Systems: Review of Systems Constitutional: Negative for chills, fatigue and fever. HENT: Negative for congestion and voice change. Eyes: Negative for blurred vision. Respiratory: Positive for shortness of breath. Negative for cough and wheezing. Cardiovascular: Negative for chest pain. Skin: Negative for dry skin. Hematological: Negative for adenopathy. Psychiatric/Behavioral: Negative for agitation and depressed mood. The following portions of the patient's history were reviewed and updated as appropriate: allergies, current medications, past family history, past medical history, past social history, past surgicalhistory and problem list. Physical Exam: Vital Signs: Vitals: 08/18/25 1422 BP: 124/84 Pulse: 68 SpO2: 97% Weight: 103 kg (226 lb) Height: 177.8 cm (70 ) Physical Exam Vitals and nursing note reviewed. Constitutional: General: He is not in acute distress. Appearance: He is well-developed and normal weight. He is not ill-appearing or toxic-appearing. Cardiovascular: Rate and Rhythm: Normal rate and regular rhythm. Pulses: Normal pulses. Heart sounds: Normal heart sounds. No murmur heard. No gallop. Pulmonary: Effort: Pulmonary effort is normal. Breath sounds: Normal breath sounds. No wheezing, rhonchi or rales. Musculoskeletal: Right lower leg: No edema. Left lower leg: No edema. Neurological: Mental Status: He is alert. Immunization History Administered Date(s) Administered Flu Vaccine Intradermal Quad 18-64YR 08/04/2024 Td (TDVAX) 12/06/1996 Tdap 03/28/2022 Results Review: - I personally reviewed the pts imaging from chest x-ray November 2024 showed no acute cardiopulmonary process - I personally reviewed the pts PFT from August 2024 showed moderate obstruction without restriction, significant air trapping and normal DLCO - I personally reviewed the pts Echo report from June 2024 showed a EF of 60%, normal left ventricular diastolic function, and normal RVSP - I personally reviewed the pts chart with regards to previous pulmonary evaluation Assessment: Diagnoses and all orders for this visit: 1. Mucopurulent chronic bronchitis (Primary) - Discontinue: Voqecyzepkd-Qhasrkhuh-Svkviq (Trelegy Ellipta) 200-62.5-25 MCG/ACT inhaler; Inhale 1puff Daily. Dispense: 90 each; Refill: 3 - Spirometry with Diffusion Capacity & Lung Volumes 2. Personal history of smoking - CT Chest Low Dose Baseline/Annual Screening WO; Future Plan: Chronic Obstructive Pulmonary Disease (COPD) Personal history of smoking - Lung function remains at 66%, consistent with the previous year - Primary objective of inhaler therapy is to reduce frequency of illnesses - Shortness of breath may be due to obstructive lung disease affecting air intake and expulsion during activities like bending over - Informed that weight gain is common in the first year after smoking cessation - Advised that a weight loss of 10 pounds could significantly alleviate shortness of breath - Consult insurance provider regarding coverage for inhalers and inform us accordingly, if Trelegy is not covered - Continue using Trelegy 200 mcg 1 puff once daily with albuterol every 4 hours - Recommended CT scan of the chest for lung cancer screening due to history of smoking one pack perday for 20 years - If experiencing active chest pain, take inhalers and refrain from smoking - If condition does not improve with 10-pound weight loss, further diagnostic workup may be considered Follow Up: Return in about 6 months (around 02/15/2026). Artem Galindo DO Pulmonary and Critical Care Medicine Note Electronically Signed Part of this note may be an electronic rig builder helper/translation of spoken language to printed textusing the 5to1ation System. Patient or patient product support representative verbalized consent for the use of Ambient Listening during the visit with Kaushik Galindo DO for chart documentation. 08/18/2025 16:49 EST documented in this encounter Plan of Treatment Upcoming Encounters Date Type Department Care Team (Late st Contact Info) Description 08/22/2026 3:15 PM EST Office Visit [facility] [address] [facility] [address] [place] [address] Radhika He MD [address] [facility] [address] [place] [address] Scheduled Orders Name Type Priority Associated Diagnoses Orde r Schedule CT Chest Low Dose Baseline/Annual Screening WO Imaging Routine Personal history of smoking Expected: 08/19/2025, Expires: 11/18/2026 documented as of this encounter Procedures Procedure Name Priority Date/Time Associated Diagnosis Comments PULMONARY FUNCTION TEST Routine 08/18/2025 3:17 PM EST Mucopurulent chronic bronchitis documented in this encounter Results * Spirometry with Diffusion Capacity & Lung Volumes (08/18/2025 3:17 PM EST) us Kaushik Galindo DO PFT ORDERABLES Fin al Result documented in this encounter Visit Diagnoses Diagnosis Mucopurulent chronic bronchitis- Primary Personal history of smoking Personal history of tobacco use, presenting hazards to health documented in this encounter Care Teams Sterile Processing Tech Relationship Specialty Start Date End Date Lola Sweeney APRN [address] [place] [address] PCP - General Internal Medicine 05/31/24 documented as of this encounter
[2025-08-23 17:15] LABS: Coronavirus 19, PCR Not Detected (NotDetected); Influenza A, PCR Not Detected (NotDetected); Influenza B, PCR Not Detected (NotDetected)
--- OUTSIDE RECORDS SUMMARY | 2025-08-24 11:49 | XMS_ITS | Continuity of Care Document ---
Author Organization [facility] [place] Address [address] [place] [address] Care Team Providers Care Abrasive Mixer Helper Name Role Phone CECI PATRICK Primary Care Provider DAMION MOREL Orthopedic Surgeon [phone] Assessment No assessment recorded. Plan of Treatment Reminders Order Date Submit Date Provider Last Modified By Organization Details Last Modified Time Details Appointments DERM VISIT 026 03:30PM RAMÍREZ SNEED NURSE PRN Not available Not available Not available Lab None recorde d. Referral None recorde d. Procedures None recorde d. Surgeries None recorde d. Imaging None recorde d. Medication Orders None recorde d. Patient TargetsNo targets recorded. Patient Instructions Encounter Date Encounter Id Patient Instructions Last Modified By Organization Details Last Modified Time 06/19/2025 [id number] Mohs surgery was discussed and recommended. We discussed the risks and benefits of Mohs surgery and reconstruction, including the practical issues associated with closures (e.g. addressing tissue redundancies). The patient understands that the repair is typically 3 times the size of the defect. The patient understands the potential for scar, recurrence, permanent numbness, need for additional future surgeries. We also emphasized that alternative therapies exist, such as curettage, standard non-Mohs excision, topical therapy, and radiation therapy; however, we do not recommend these approaches for this specific cancer(s) due to a lower cure rate, possibly increased risk of scarring, and/or risk of additional tissue damage. [email or web address] Not available 06/19/2025 15:32:35 Reason for Referral None Reported. Problems No Known Problems Procedures Surgical History Date Name Laterality Status Provider Name and Address Organization Details Recorded Time 08/01/20 25 Destruction BN Lesions completed Analia Armas [facility] 08/01/2025 15:51:39 06/27/20 25 Mohs Repair: Complex Linear completed RAFIA KULKARNI JR, MD [address] [place] [address], [phone], [facility] 06/27/2025 17:03:21 06/27/20 25 Mohs 1 Lesion - Renzi completed RAFIA KULKARNI JR, MD [address] [place] [address], [phone], [facility] 06/27/2025 17:03:13 11/05/19 17 hernia repair completed [facility] 12/02/2021 16:05:42 11/05/18 97 Hand tendon reconstruction completed [facility] 12/02/2021 16:06:05 Imaging Results None recorded. Procedure Notes None recorded. Medical Equipment None Reported. Allergies Allergen ID Allergen Name Allergen Category Reaction Reaction Severity Criticality Documentation Date Start Date Code Code System Note Provider Name and Address Organization Details Recorded Time 017002 amoxicill in medicatio n Not available Not available Not available 12/02/2021 723 RxNorm [facility] 16:03:58 Medications Name Sig Start Date Stop Date Status Note LastModified by Organization Details LastModified Time doxycycline hyclate 100 mg capsule Take 1 capsule twice a day by oral route after meal(s) for 5 days, for Postopera tive Care. 07/09 completed Not Available Not Available Not Available Medrol (Que) 4 mg tablets in a dose pack Take 1 dose pk by oral route as directed. 2021 active Not Available Not Available Not Avai lable omeprazole active Not Available Not Av ailable Not Available amlodipine active Not Available Not Av ailable Not Available albendazole active Not Available Not A vailable Not Available Asprin Ec Low Dose active Not Available Not Available Not Available rosuvastati n active Not Available Not Available Not Available bupropion HBr active Not Available Not Available Not Available Vitals None Recorded Social History Question Answer Notes LastModified by Organizat ion Details LastModified Time Tobacco Smoking Status Current Every Day Smoker Kulwinder Montoya [facility] 12/02/2021 16:05:09 What Is Your Level Of Caffeine Consumption? Heavy Information not available 12/02/2021 How Much Tobacco Do You Smoke? 0.5 PPD Information not available 12/02/2021 Sex: Unknown Functional Status Question Answer Note LastModified by Organizat ion Details LastModified Time What is your level of alcohol consumption? Occasional Information not available 12/02/2021 Mental Status None recorded. Family History Nothing Reported. Medical History Condition Response Kidney Stones N Arthritis N Cancer N Kidney Disease N Heart Conditions Y Migraines Y Asthma N Anesthesia Complications N Blood Thinners N Liver Disease N Allergies/Hayfever Y Heart Attack (NE) N Diabetes N Seizures/Epilepsy N Sleep Apnea N Immunizations Vaccine Type Date Status Note Provider Nam e and Address Organization Details Recorded Time Td (adult), 2 Lf tetanus toxoid, preservative free, adsorbed 7 completed Not Available [facility] 08/01/2025 15:22:38 Tdap 2 completed Not Available [facility] 08/01/2025 15:22:38 influenza, intradermal, quadrivalent, preservative free 4 completed Not Available [facility] 08/01/2025 15:22:38 Past Encounters Encounter ID Performer Location Encounter Start Date Encounter Closed Date Diagnosis/Indication Diagnosis SNOMED-CT Code Diagnosis ICD10 Code Diagnosis IMO Codes Diagnosis Note [id number] RAFIA KULKARNI JR, MD [address] [address] 06/19/2025 13:31:58 06/20/2025 05:08:00 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 Discussed Mohs vs Excision, each procedure explained including risk and benefits.P atient would like to move forward with Mohs procedure. Will have scheduling coordinato r contact with appt for procedure. Patient to call if not contacted within 5 business days. attended appt with pt. aware of plan. Health Concerns Section Related Observation LastModified by Organization Detai ls LastModified Time None Recorded Concern Status LastModified by Organization Details LastModified Time None Recorded Payers Encounter Date Sequence Insurance Name Policy Number Policy Ramos Covered Member ID Ramos Member ID Guarantor Name 06/19/2025 1 [id number] ([id number]) [id number] Guevara Christy [id number] Guevara Westley Notes Date Note Type Note Provider Name and Address Organization Details Recorded Time 06/19/2025 text/html ROS as noted in the HPI Location: Left Upper Anterior LegCancer Type: SCC with keratoacanthoma featuresMeasurement: 2.2 x 1.1 cmDuration: Biopsy: 06/05/2025 RAFIA KULKARNI JR, MD [address] [place] [address], [phone], [facility] 06/19/2025 15:41:40
--- OUTSIDE RECORDS SUMMARY | 2025-08-24 11:49 | XMS_ITS | Encounter Summary ---
Author Organization [facility] Address [address] [place] [address] Care Team Providers Care X Ray Nurse Name Role Phone Lola Sweeney TIM Primary Care Provider Encounter Details Date Type Department Care Team (Late st Contact Info) Description 07/10/2025 Telephone [facility] CARDIOLOG[facility] [address] [facility] [address] [place] [address] Radhika He MD [address] [facility] [address] [place] [address] Social History Tobacco Use Types Packs/Day Years [...] encounter Miscellaneous Notes * Telephone Encounter - Chilo Nolasco RegSched Rep - 07/10/2025 1:09 PM EDT LVM REGARDING NEW APPT TIME AND DATE WITH KERRI PEDERSEN. APPT REMINDER MAILED. documented in this encounter Plan of Treatment Upcoming Encounters Date Type Department Care Team (Late st Contact Info) Description 08/22/2026 3:15 PM EST Office Visit [facility] [address] [facility] [address] [place] [address] Radhika He MD [address] [facility] [address] [facility] [address] [place] [id number] documented as of this encounter Visit Diagnoses Not on filedocumented in this encounter Care Teams X Ray Nurse Relationship Specialty Start Date End Date Lola Sweeney APRN [address] [place] [address] PCP - General Internal Medicine 05/31/24 documented as of this encounter
--- OUTSIDE RECORDS SUMMARY | 2025-08-24 11:49 | XMS_ITS | Encounter Summary ---
Author Organization [facility] Address [address] [place] [address] Care Team Providers Care Washer Assembler Name Role Phone Lola Sweeney APRN Primary Care Provider [phone] Encounter Details Date Type Department Care Team (Latest Contact Info) Description 08/04/2025 Travel Social History Tobacco Use Types Packs/Day [...] Description 08/22/2026 3:15 PM EST Office Visit [facility] C[facility]IOLOG[facility] [address] [place] [address] Radhika He MD [address] [place] [address] documented as of this encounter Visit Diagnoses Not on filedocumented in this encounter Care Teams Washer Assembler Relationship Specialty Start Date End Date Lola Sweeney APRN [address] [address] PCP - General Internal Medicine 05/31/24 documented as of this encounter
--- OUTSIDE RECORDS SUMMARY | 2025-08-24 11:51 | XMS_ITS | Encounter Summary ---
[facility] Address [address] [place] [address] Care Team Providers Care A R Collections Rep Name Role Phone Lola Sweeney APRN Primary Care Provider [phone] Reason for Visit * Reason Onset Date Comments Med Refill 08/18/2025 Encounter Details Date Type Department Care Team (Late st Contact Info) Description 08/18/2025 Refill [facility] [address] [facility] [place] [address] Kaushik Galindo DO [address] [place], [place] [id number] Mucopurulent chronic bronchitis Social History Tobacco Use Types Packs/Day Years [...] Telephone Encounter - Christal Wilson MA - 08/18/2025 3:01 PM EST Samples of Trelegy 200 given. documented in this encounter Plan of Treatment Upcoming Encounters Date Type Department Care Team (Late st Contact Info) Description 08/22/2026 3:15 PM EST Office Visit [facility] [address] [place] [address] Radhika He MD [address] [facility] [address] [place] [address] documented as of this encounter Visit Diagnoses Diagnosis Mucopurulent chronic bronchitis documented in this encounter Care Teams A R Collections Rep Relationship Specialty Start Date End Date Lola Sweeney APRN [address] [address] PCP - General Internal Medicine 05/31/24 documented as of this encounter
--- OUTSIDE RECORDS SUMMARY | 2025-08-24 11:51 | XMS_ITS | Encounter Summary ---
Author Organization [facility] Address [address] [place] [address] Care Team Providers Care Wind Turbine Controls Engineer Name Role Phone Lola Sweeney APRN Primary Care Provider [phone] Encounter Details Date Type Department Care Team (Latest Contact Info) Description 08/18/2025 Travel Social History Tobacco Use Types Packs/Day [...] Description 08/22/2026 3:15 PM EST Office Visit [facility] [address] [place] [address] Radhika He MD [address] [facility] [address] [place] [address] documented as of this encounter Visit Diagnoses Not on filedocumented in this encounter Care Teams Wind Turbine Controls Engineer Relationship Specialty Start Date End Date Lola Sweeney APRN [address] [address] PCP - General Internal Medicine 05/31/24 documented as of this encounter
--- OUTSIDE RECORDS SUMMARY | 2025-08-24 11:51 | XMS_ITS | Encounter Summary ---
[facility] Organization [facility] Address [address] [place] [address] Care Team Providers Care Elevator Repairer Helper Name Role Phone Lola Sweeney TIM Primary Care Provider [phone] Reason for Visit * Reason Comments Med Refill Encounter Details Date Type Department Care Team (Late st Contact Info) Description 06/08/2025 Refill [facility] [address] [facility] [address] [place] [address] Ela Elizalde, EQUITY SALES ASSISTANT [address] [facility] [address] [place] [address] Med Refill Social History Tobacco Use Types [...] Description 08/22/2026 3:15 PM EST Office Visit [facility] [address] [place] [address] Radhika He MD [address] [place] [address] documented as of this encounter Visit Diagnoses Not on filedocumented in this encounter Care Teams Elevator Repairer Helper Relationship Specialty Start Date End Date Loal Sweeney APRN [address] [place] [address] PCP - General Internal Medicine 05/31/24 documented as of this encounter
--- OUTSIDE RECORDS SUMMARY | 2025-08-24 11:51 | XMS_ITS | Encounter Summary ---
Author Organization [facility] Address [address] [place] [address] Care Team Providers Care Steeple Jack Name Role Phone Lola Sweeney APRN Primary Care Provider Encounter Details Date Type Department Care Team ([facility] Contact Info) Description 08/07/2025 Results Follow-Up [facility] C[facility] [address] [facility] [address] [place] [address] Maria C Robertson PA-C [address] [facility] [address] [place] [address] Social History Tobacco Use Types Packs/Day Years [...] Upcoming Encounters Date Type Department Care Team ([facility] Contact Info) Description 08/22/2026 3:15 PM EST Office Visit [facility] [address] [place] [address] Radhika He MD [address] [place] [address] documented as of this encounter Visit Diagnoses Not on filedocumented in this encounter Care Teams Steeple Jack Relationship Specialty Start Date End Date Lola Sweeney APRN [facility] [address] [address] PCP - General Internal Medicine 05/31/24 documented as of this encounter
--- OUTSIDE RECORDS SUMMARY | 2025-08-24 11:52 | XMS_ITS | Clinical Summary ---
Author Organization [facility] Address [address] [place] [address] Care Team Providers Care Ornamenter Hand Name Role Phone Lola Sweeney APRN Primary Care Provider [phone] Allergies Active Allergy Reactions Criticality Noted Date [...] for Wheezing. 120 each 11 3 Active EPINEPHrine (EPIPEN) 0.3 MG/0.3ML solution auto-injector injection 3 Active tadalafil (CIALIS) 5 MG tablet Take 1 tablet by mouth Daily As Needed for Erectile Dysfunction. Active amLODIPine-chris azepril (LOTREL) 10-20 MG per capsule Take 1 capsule by mouth Daily. 30 capsule 11 4 Active Airsupra 90-80 MCG/ACT aerosol 5 Active omeprazole (priLOSEC) 40 MG capsule Take 1 capsule by mouth Daily. 5 Active nystatin (MYCOSTATIN) 100,000 unit/mL suspension Take 5 mL by mouth 4 (Four) Times a Day. 280 mL 5 Active rosuvastatin (CRESTOR) 5 MG tablet TAKE 1 TABLET BY MOUTH DAILY 90 tablet 3 5 Active buPROPion XL (WELLBUTRIN XL) 150 MG 24 hr tablet .COMPLEX 5 Active Fluticasone-Um eclidin-Vilant (Trelegy Ellipta) 200-62.5-25 MCG/ACT inhalerIndicat ions:Mucopurul ent chronic bronchitis Inhale 1 puff Daily. 2 each 5 Active azelastine (ASTELIN) 0.1 % nasal spray 3 Discontin ued(*Ther apy completed ) HYDROcodone-ac etaminophen (NORCO) 5-325 MG per tablet 3 025 Discontin ued(*Ther apy completed ) Omeprazole Magnesium (PRILOSEC PO) 025 Discontin ued(*Ther apy completed ) buPROPion XL (WELLBUTRIN XL) 150 MG 24 hr tablet 4 025 Discontin ued(*Ther apy completed ) ipratropium-al buterol (DUO-NEB) 0.5-2.5 mg/3 ml nebulizer 5 025 Discontin ued(*Ther apy completed ) predniSONE (DELTASONE) 10 MG tablet Take 4 tabs daily x 3 days, then take 3 tabs daily x 3 days, then take 2 tabs daily x 3 days, then take 1 tab daily x 3 days 31 tablet 5 025 Discontin ued(*Ther apy completed ) doxycycline (VIBRAMYCIN) 100 MG capsule Take 1 capsule by mouth 2 (Two) Times a Day. 20 capsule 5 025 Discontin ued(*Ther apy completed ) predniSONE (DELTASONE) 10 MG tablet 4 po dailyx5, 3po dailyx5, 2 po dailyx7, 1 po dailyx7 56 tablet 5 025 Discontin ued(*Ther apy completed ) HYDROcodone Bit-Homatrop MBr (HYCODAN) 5-1.5 MG tablet tablet Take 1 tablet by mouth Every 6 (Six) Hours As Needed (cough). 28 tablet 5 025 Discontin ued(*Ther apy completed ) sulfamethoxazo le-trimethopri m (BACTRIM DS,SEPTRA DS) 800-160 MG per tablet 5 025 Discontin ued(*Ther apy completed ) Fluticasone-Um eclidin-Vilant (Trelegy Ellipta) 200-62.5-25 MCG/ACT inhaler Inhale 1 puff Daily. 1 each 5 025 Discontin ued(Reord er) Fluticasone-Um eclidin-Vilant (Trelegy Ellipta) 200-62.5-25 MCG/ACT inhalerIndicat ions:Mucopurul ent chronic bronchitis Inhale 1 puff Daily. 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 [address] [place] [address] Kaushik Galindo, DO Mucopurulent chronic bronchitis (Primary Dx); Personal history of smoking 08/18/[address] [facility] [address] [place] [address] Kaushik Galindo, DO Mucopurulent chronic bronchitis 08/18/2025 Travel 08/07/2025 Results Follow-Up [facility] C[facility]OLOG[facility] [address] [facility] [address] [place] [address] Maria C Robertson PA-C 08/04/2025 12:30 PM EDT Lab [facility] [address] [place] [phone] Essential hypertension; Hyperlipidemia LDL goal <70 08/04/2025 11:00 AM EDT Office Visit [facility] [address] [facility] [address] [place] [address] Maria C Robertson PA-C Bicuspid aortic valve (Primary Dx); Coronary artery calcification; Essential hypertension; Hyperlipidemia LDL goal <70 08/04/2025 Travel 07/10/[address] [facility] [address] [facility] [address] [place] [address] Radhika He MD 06/08/[address] [facility] [address] [facility] [address] [place] [address] Ela Elizalde, PHYSICIST NUCLEAR Med Refill from Last 3 Months Immunizations [...] Pulse 68 08/18/2025 2:22 PM EST Temperature 36.2 C (97.1 F) 02/23/2025 1:59 PM EDT Respiratory Rate 16 12/29/2024 3:03 PM EDT Oxygen Saturation 97% 08/18/2025 2:22 PM EST Inhaled Oxygen Concentration - - Weight 103 kg (226 lb) 08/18/2025 2:22 PM EST Height 177.8 cm (5' 10 ) 08/18/2025 2:22 PM EST Body Mass Index 32.43 08/18/2025 2:22 PM EST Plan of Treatment Upcoming Encounters Date Type Department Care Team (Late st Contact Info) Description 08/22/2026 3:15 PM EST Office Visit [facility] [address] [facility] [address] [place] [address] Radhika He MD [address] [facility] [address] [place] [address] Health Maintenance Due Date Last Done Comments Pneumococcal Vaccine 50+ (1 of 2 - PCV) 1991 COLOGUARD 2017 COLON CANCER SCREENING 5 YEA R SIGMOIDOSCOPY 2017 COLONOSCOPY 2017 [address]AL CANCER SCREENING 2017 CT COLONOGRAPHY 2017 FECAL OCCULT BLOOD TEST 2017 FIT Testing (1 year) 2017 ANNUAL PHYSICAL 09/01/2018 HEPATITIS C SCREENING 09/01/2018 LUNG CANCER SCREENING 2022 06/10/2021, 019 ZOSTER VACCINE (1 of 2) 2022 INFLUENZA VACCINE 05/05/2025 08/04/2024 LIPID PANEL 08/04/2026 08/04/2025 TDAP/TD VACCINES (3 - Td or Tdap) 03/28/2032 022, 12/06/1996 Procedures Procedure Name Priority Date/Time Associated Diagnosis Comments PULMONARY FUNCTION TEST Routine 08/18/2025 3:17 PM EST Mucopurulent chronic bronchitis PROBNP Routine 08/04/2025 12:15 PM EDT Essential hypertension BASIC METABOLIC PANEL Routine 08/04/2025 12:15 PM EDT Essential hypertension CBC (NO DIFF) Routine 08/04/2025 12:15 PM EDT Essential hypertension LIPID PANEL Routine 08/04/2025 12:15 PM EDT Essential hypertension Hyperlipidemia LDL goal <70 ECG 12-LEAD Routine 08/04/2025 Coronary artery calcification Essential hypertension SCANNED - LABS 06/29/2025 CT ANGIOGRAM CHEST STAT 06/10/2021 10 :43 PM EDT from Last 3 Months or Most Recently Relevant to Health Maintenance Results * Spirometry with Diffusion Capacity & Lung Volumes (08/18/2025 3:17 PM EST) Kaushik Galindo DO PFT ORDERABLES Fin al Result * proBNP (08/04/2025 12:15 PM EDT) proBNP 61.5 0.0 - 900.0 pg/mL 08/04/2025 7:45 PM EDT [facility] Blood Venipuncture / Unknown 08/04/2025 12:15 PM EDT 08/04/2025 12:15 PM EDT Narrative [facility] - 08/04/2025 7:45 PM EDT [...] PA-C LAB BLOOD ORDERABLES Final Re sult [facility]
[address] [place] [address], * CBC (No Diff) (08/04/2025 12:15 PM EDT) WBC 7.14 3.40 - 10.80 10*3/mm3 08/04/2025 6:56 PM EDT [facility] RBC 4.76 4.14 - 5.80 10*6/mm3 08/04/2025 6:56 PM EDT [facility] Hemoglobin 14.6 13.0 - 17.7 g/dL 08/04/2025 6:56 PM EDT [facility] Hematocrit 43.7 37.5 - 51.0 % 08/04/2025 6:56 PM EDT [facility] MCV 91.8 79.0 - 97.0 fL 08/04/2025 6:56 PM EDT [facility] MCH 30.7 26.6 - 33.0 pg 08/04/2025 6:56 PM EDT [facility] MCHC 33.4 31.5 - 35.7 g/dL 08/04/2025 6:56 PM EDT [facility] RDW 12.3 12.3 - 15.4 % 08/04/2025 6:56 PM EDT [facility] RDW-SD 40.7 37.0 - 54.0 fl 08/04/2025 6:56 PM EDT [facility] MPV 10.9 6.0 - 12.0 fL 08/04/2025 6:56 PM EDT [facility] Platelets 328 140 - 450 10*3/mm3 08/04/2025 6:56 PM EDT [facility] Blood Venipuncture / Unknown 08/04/2025 12:15 PM EDT 08/04/2025 12:15 PM EDT Maria C Robertson PA-C LAB BLOOD ORDERABLES Final Re sult [facility]
[address] [place] [address], * (ABNORMAL) Lipid Panel (08/04/2025 12:15 PM EDT) Total Cholesterol 135 0 - 200 mg/dL 08/04/2025 7:45 PM EDT [facility] Triglycerides 125 0 - 150 mg/dL 08/04/2025 7:45 PM EDT [facility] HDL Cholesterol 36(L) 40 - 60 mg/dL 08/04/2025 7:45 PM EDT [facility] LDL Cholesterol 76 0 - 100 mg/dL 08/04/2025 7:45 PM EDT [facility] VLDL Cholesterol 23 5 - 40 mg/dL 08/04/2025 7:45 PM EDT [facility] LDL/HDL Ratio 2.06 08/04/2025 7:45 PM EDT [facility] Blood Venipuncture / Unknown 08/04/2025 12:15 PM EDT 08/04/2025 12:15 PM EDT Narrative [facility] - 08/04/2025 7:45 PM EDT [...] the NIH LDL-C calculation. us Maria C DUGAN-Vanessa LAB BLOOD ORDERABLES Final Re sult [facility]
[address] [place] [address], * Basic Metabolic Panel (08/04/2025 12:15 PM EDT) Glucose 91 65 - 99 mg/dL 08/04/2025 7:45 PM EDT [facility] BUN 12.0 6.0 - 20.0 mg/dL 08/04/2025 7:45 PM EDT [facility] Creatinine 0.96 0.76 - 1.27 mg/dL 08/04/2025 7:45 PM EDT [facility] Sodium 140 136 - 145 mmol/L 08/04/2025 7:45 PM EDT [facility] Potassium 4.1 3.5 - 5.2 mmol/L 08/04/2025 7:45 PM EDT [facility] Chloride 104 98 - 107 mmol/L 08/04/2025 7:45 PM EDT [facility] CO2 23.3 22.0 - 29.0 mmol/L 08/04/2025 7:45 PM EDT [facility] Calcium 9.7 8.6 - 10.5 mg/dL 08/04/2025 7:45 PM EDT [facility] BUN/Creatinine Ratio 12.5 7.0 - 25.0 08/04/2025 7:45 PM EDT [facility] Anion Gap 12.7 5.0 - 15.0 mmol/L 08/04/2025 7:45 PM EDT [facility] eGFR 95.1 >60.0 mL/min/1.7 3 08/04/2025 7:45 PM EDT [facility] Blood Venipuncture / Unknown 08/04/2025 12:15 PM EDT 08/04/2025 12:15 PM EDT Narrative [facility] - 08/04/2025 7:45 PM EDT GFR [...] does not include race as a factor us Maria C Robertson PA-C LAB BLOOD ORDERABLES Final Re sult [facility]
[address] [place] [address], * ECG 12-LEAD (08/04/2025) Narrative 08/04/2025 Maria [...] Robertson PA-C - 08/04/2025 11:00 AM EDT [facility] Cardiology Date: 08/04/2025 Patient ID: Guevara Christy [...] Chest pain/unstable angina: Numerous ER visits to [facility] for chest pain. Myocardial perfusion [...] perfusion scanning, January 2007. 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 GERD. History of tobacco [...] MG/0.3ML solution auto-injector injection, ,Disp: , Rfl: Jxmwlarclyw-Aubeknkwc-Wubhzm (Trelegy Ellipta) 200-62.5-25 MCG/ACTinhaler, Inhale 1 puff [...] break. He has a follow-up appointment withhis market asset protection manager in a couple of weeks. Patient also [...] sooner if needed. Maria C Robertson PA-C us Maria C Robertson PA-C ECG ORDERABLES Final Result * LABS SCANNED (06/29/2025) Maria C Robertson PA-C LAB BLOOD ORDERABLES Final Re sult * CT Angiogram Chest (06/10/2021 10:43 PM EDT) Anatomical Region Laterality Modality Chest, Vascular N/A Computed Tomogra phy 06/10/2021 11:0 5 PM EDT Impressions 06/10/2021 11:05 PM EDT 1. No PE or aortic dissection. 2. Negative for pneumonia. 3. Scattered benign small bilateral pulmonary nodules are stable from prior. No further follow-up is indicated at this time. Signer Name: Oleg Hassan MD Signed: 06/10/2021 11:05 PM Workstation Name: [facility] 06/10/2021 11:05 PM EDT CTA Chest INDICATION: Chest pain with elevated d-dimer. Covid positive. TECHNIQUE: CT angiogram of the chest with IV contrast. 3-D reconstructions were obtained and reviewed. Radiation dose reduction techniques included automated exposure control or exposure modulation based on body size. Count of known CT and cardiac nuc med studies performed in previous 12 months: 0. COMPARISON: 09/14/2019 FINDINGS: No pulmonary embolism or aortic dissection is identified. There is no pleural or pericardial effusion. There is no adenopathy. Upper abdominal images show changes of cholecystectomy with postoperative change noted in the left upper quadrant. There are scattered small noncalcified pulmonary nodules in both lungs. The 2 largest measure only 6 mm in size in the left lower lobe and right middle lobe. The remainder of these measure 4 mm or less in size. All of these appear stable from prior when measured similarly on both studies and are benign. No follow-up is indicated. The lungs are otherwise clear with no acute infiltrates identified. No CT findings present to indicate pneumonia. Note: CT may be negative in the earliest stages of COVID-19. Procedure Note Oleg Hassan MD - 06/10/2021 CTA Chest INDICATION: Chest pain with elevated d-dimer. Covid positive. TECHNIQUE: CT angiogram of the chest with IV contrast. 3-D reconstructions wereobtained and reviewed. Radiation dose reduction techniques includedautomated exposure control or exposure modulation based on body size.Count of known CT and cardiac nuc med studies performed in previous 12 months: 0. COMPARISON: 09/14/2019 FINDINGS: No pulmonary embolism or aortic dissection is identified. There is nopleural or pericardial effusion. There is no adenopathy. Upper abdominalimages show changes of cholecystectomy with postoperative change noted inthe left upper quadrant. There are scattered small noncalcified pulmonary nodules in both lungs.The 2 largest measure only 6 mm in size in the left lower lobe and rightmiddle lobe. The remainder of these measure 4 mm or less in size. All ofthese appear stable from prior when measured similarly on both studies and are benign. No follow-up isindicated. The lungs are otherwise clear with no acute infiltratesidentified. No CT findings present to indicate pneumonia. Note: CT may benegative in the earliest stages of COVID- 19. IMPRESSION: 1. No PE or aortic dissection. 2. Negative for pneumonia. 3. Scattered benign small bilateral pulmonary nodules are stable fromprior. No further follow-up is indicated at this time. Signer Name: Oleg Hassan MD Signed: 06/10/2021 11:05 PM Workstation Name: [facility] Jeffery Santana MD IM CT ORDERABLES Final Re sult from Last 3 Months or Most Recently Relevant to Health Maintenance Insurance [facility] PPO Care Teams Ornamenter Hand Relationship Specialty Start Date End Date Lola Sweeney APRN [address] [facility] [address] [facility] [address] [place] [id number] PCP - General Internal Medicine 05/31/24
== END 2025-08-23 23:59 ==
LOC: LAB.DROPOF 08-24 10:44
PROVIDERS: PCP Nurse Practitioner Family; Visit Provider Nurse Practitioner Family
DX: J40 Bronchitis, not specified as acute or chronic (principal)
CPT/HCPCS: 87631